=== PATIENT | female | born 1935 | race Caucasian/White ===

== ENCOUNTER 2020-02-23 20:53 | Emergency (ER) | payer MEDICARE, OTHER ==
[~2020-02-23] VITALS: Ht 167.6 cm; Wt 56.2 kg
[~2020-02-23 20:53] MED LIST: ACET325 PO; ALEN70 PO; Armour Thyroid90 MG PO; CEFD300 PO; CLIN150 PO; CODACE60 PO; Cartia Xt120 MG PO; Colace250 MG PO; DILT120ERA PO; DIPH50 PO; FAMO40 PO; FENTANYL1 EAC1 TOP; GABA300 PO; HYDACE5325 PO; Hydrocodone-Ap1 EA20 PO; LIDO700A20 TOP; LINZESS145 MCG PO; METCAR500 PO; METO50ER PO; METPRE4DP PO; OXYC5; OXYC5 PO; PRED5 PO; PROBIOTIC; RXSULTRIDS PO; Robaxin500 MG PO; Roxicodone5 MG PO; THYR60 PO; TRAM50 PO; Zithromax250 MG PO; [UNRECOGNIZED DRUG - OTHER]
[2020-02-23] MEDS ORDERED: OXYC10TA19 PO (22:58)
[2020-02-23] MEDS ORDERED: MELO7.5 PO (22:59)
[2020-02-23] MEDS ORDERED: ASCORBIC ACID500 MG PO (23:00)
[2020-02-23] MEDS ORDERED: PARO20 PO (23:00)
[2020-02-23] MEDS ORDERED: CENTRUM SILVER1 EAC2 PO (23:00)
[2020-02-23] MEDS ORDERED: CALCIUM 600 +1 EA11 (23:01)
[2020-02-24] MEDS ORDERED: LIDO700A20 TOP (00:14)
== END 2020-02-24 00:36 | disposition home or self-care (01) ==
LOC: ER 20:53
DX: S09.90XA Unspecified injury of head, initial encounter (principal); S32.039A Unspecified fracture of third lumbar vertebra, initial encounter for closed fracture; M81.0 Age-related osteoporosis without current pathological fracture; Z88.2 Allergy status to sulfonamides; Z88.0 Allergy status to penicillin; Z91.011 Allergy to milk products; Z88.5 Allergy status to narcotic agent; Z91.040 Latex allergy status; Z88.8 Allergy status to other drugs, medicaments and biological substances; Z79.899 Other long term (current) drug therapy; I48.0 Paroxysmal atrial fibrillation; E03.9 Hypothyroidism, unspecified; W11.XXXA Fall on and from ladder, initial encounter
CPT/HCPCS: 70450; 72100; 72125; 72128; 72131; 72192; 99284-25

== ENCOUNTER 2020-03-25 19:00 | Inpatient (IN) | payer MEDICARE, OTHER ==
[~2020-03-25] VITALS: Ht 167.6 cm; Wt 61.1 kg
[~2020-03-25 19:00] MED LIST changes: +ASCORBIC ACID500 MG PO; +CALCIUM 600 +1 EA11; +CENTRUM SILVER1 EAC2 PO; +COLACE100 MG PO; +MELO7.5 PO; +Magnesium Citr296 ML PO; +OXYC10TA19 PO; +PARO20 PO
[2020-03-25] MEDS ORDERED: MELO7.5 PO (23:21)
[2020-03-25] MEDS ORDERED: CALCIUM 600 +1 EA11 PO (23:22)
[2020-03-25] MEDS ORDERED: Cardizem CD 12120 MG PO (23:23)
[2020-03-26] MEDS ORDERED: Cipro250 MG PO (01:11)
[2020-03-26] MEDS ORDERED: DICLOFENAC SOD100 G1 TOP (01:13)
[2020-03-26] MEDS ORDERED: DOCU100 PO (01:14)
[2020-03-26] MEDS ORDERED: ALEN70 PO (01:16)
[2020-03-26] MEDS ORDERED: LINZESS290 MCG PO (01:18)
[2020-03-26 02:02] LABS: BASOPHILS ABSOLUTE AUTO 0.04 K/mm3 (0.00-0.23); BASOPHILS PERCENT AUTO 1 % (0-2); EOSINOPHILS ABSOLUTE AUTO 0.25 K/mm3 (0.00-0.68); EOSINOPHILS PERCENT AUTO 3 % (0-6); Hematocrit 40.5 % (33.0-51.0); Hemoglobin 13.6 g/dL (11.5-16.0); IMMATURE GRAN ABSOLUTE AUTO 0.04 K/mm3 (0.00-0.10); IMMATURE GRAN PERCENT AUTO 1 % (0-1); LYMPHOCYTES ABSOLUTE AUTO 2.49 K/mm3 (0.84-5.20); LYMPHOCYTES PERCENT AUTO 29 % (21-46); MONOCYTES ABSOLUTE AUTO 0.95 K/mm3 (0.16-1.47); MONOCYTES PERCENT AUTO 11 % (4-13); Mean Corpuscular HGB 32.3 pg (26.0-34.0); Mean Corpuscular HGB Conc 33.6 g/dL (31.5-36.5); Mean Corpuscular Volume 96 fL (80-100); Mean Platelet Volume 10.5 fL (9.1-12.4); NEUTROPHILS PERCENT AUTO 55 % (41-73); Platelet Count 232 K/mm3 (150-400); RDW Standard Deviation 46.1 fL (35.1-46.3); Red Blood Cell Count 4.21 M/mm3 (3.80-5.20); White Blood Cell Count 8.47 K/mm3 (4.00-11.30)
[2020-03-26 02:05] LABS: Anion Gap 6 mmol/L (6-16); Blood Urea Nitrogen 18 mg/dL (8-24); Bun/Creatinine Ratio 24.8 (12.0-20.0); CO2, Blood 27 mmol/L (21-32); Calcium, Blood 9.2 mg/dL (8.5-10.1); Chloride, Blood 104 mmol/L (98-108); Creatinine, Blood 0.73 mg/dL (0.40-1.00); Glomerular Filtration Rate >60 (60-); Glucose, Blood 90 mg/dL (70-99); Sodium, Blood 137 mmol/L (136-145)
[2020-03-26] MEDS ORDERED: ACET500 PO (02:11)
[2020-03-26] MEDS ORDERED: ARTIFICIAL TEAR15 M2 BOTHEYES (02:11)
[2020-03-26] MEDS ORDERED: OTC SLEEP AID PO (02:13)
--- NOTE | 2020-03-26 03:05 | NUR ---
PT ARRIVED TO ROOM FROM ER IN STABLE CONDITION, REPORTS SOB WITH PAIN, ON RA AT 97%. PAIN IN BACK AND L SIDE, STARTED PT'S FENTANYL MANAGER RAIL AND APPLIED LIDOCAINE PATCHES. WILL EVAL FOR EFFECT. NO OTHER APPARENT SIGNS OF DISTRESS. CALL LIGHT IS IN REACH.
--- NOTE | 2020-03-26 04:24 | NUR ---
PT IS AAO X 4, REPORTS SOB WITH PAIN, IS ON RA AT 97%. REPORTS PAIN IN BACK AND L SIDE, PT HAS A FENTANYL LANDMEN AND LIDOCAINE PATCHES. CONT BIOX.
--- NOTE | 2020-03-26 04:24 | NUR ---
PT LYING IN BED, EYES CLOSED, APPEARS TO BE RESTING. BREATHING IS EVEN, UNLABORED. NO APPARENT SIGNS OF DISTRESS. CALL LIGHT IS IN REACH.
--- NOTE | 2020-03-26 06:11 | NUR ---
PT REQUESTED AND RECIEVED PAIN MEDICATION. CHECKED TO SEE IF PT IS PUSHING HER ENGINEERING PROJECT MANAGER BUTTON, SHE SAID SHE IS BUT WHEN BEFORE I GAVE HER THE PAIN MED FOR BREAKTHROUGH PAIN, I PUSHED THE BUTTON FOR HER AND IT WAS TIME AGAIN. I WILL LET WHOEVER TAKES CARE OF HER KNOW SHE NEEDS TO ALSO BE REMINDED TO PUSH THE ENGINEERING PROJECT MANAGER BUTTON. ALSO GOT PT A HEATING PAD. WILL EVAL FOR EFFECT. NO OTHER APPARENT SIGNS OF DISTRESS. CALL LIGHT IS IN REACH. NO OTHER CHANGES THIS SHIFT.
--- NOTE | 2020-03-26 17:35 | NUR ---
PT REMAINS ON STATISTICIAN PUMP WITH OCCASIONAL PRN MEDS GIVEN FOR BREAK THROUGH PAIN . SHE IS ABLE TO AMBULATE TO THE RESTROOM WITH SBA. PT IS A/0 X4 AND IS COOPERATIVE AND PLEASANT WITH STAFF. NO ACUTE CHANGES. CALL LIGHT WITHIN REACH.
--- NOTE | 2020-03-26 18:52 | NUR ---
Spiritual care note: Supportive visit with Fay. She is well-known to me from the community. I was also present when her spouse a few months ago. She responded well to prayer and auto travel counselor. She tells me that she knows she shouldn't be living by herself any more, but she cannot afford assisted living. Her income was cut in half when spouse . She would benefit from a caregiver and a careful assesment of her finances. She may, in fact, be able to financially manage assisted living. She admits she has never looked into this option. I will continue to see Fay as schedule permits.
--- NOTE | 2020-03-26 18:58 | NUR ---
Met with pt this morning and a few after checks. Pt worked with pt this morning. Review of assesment of symptoms and medications with physician. Pt states she has been having more headaches and ringing in her ears. She has mild diszziness and more difficulty with managing ambulation and complains of weakness. Her mouth is sore and having more difficulty swallowing and some emesis right after eating. She has very poor appetitie. She states she is not sleeping much. Pt grieving loss of her . She lives alone and does her own shopping. She relayed she often shops at [employer]. She states she is dairy intolerant and has not tied soy products. She has a step in shower and it is difficlut but she does it. She spends most of her time reading. She has recieved calls from her children who are diving out to help her. Encouraged her to accept rehab. We reiveid getting more help and assited living to help with safety. Did not ask if she is trying to drive. We reviewed strategies for food tolerance and pain management and diversion. Requested her home pain cream. pt castro deluca will follow up for pain managment. pt high risk fall and failure to thive due to isolation and grief. will have chaplian see pt.
--- NOTE | 2020-03-27 04:52 | NUR ---
SHIFT SUMMARY: SBP ELEVATED TO 217 TONIGHT, PT PAINFUL AT THE TIME. AFTER PAIN MEDS AND REST, SBP 152 THIS. TUB RIDER PUMP ORDERED. ENCOURAGED PT TO UTILIZE PUMP. PT CONT TO BE VERY PAINFUL. CRYING INTERMITTENTLY. ADDITIONAL PRN FENTANYL GIVEN W/SOME IMPROVEMENT, OXYCODONE ADMINISTEREDX1, PT FELT NAUSEAUS AFTER, REQUESTED SOY MILK RATHER THAN ANTIEMETIC AT THIS TIME. ASSISTED PT W/ REPOSITIONING AND PLACEMENT OF K-PAD. SLEPT INTERMITTENTLY. PAIN CONT IN BACK AND L HIP. UP TO BSC W/ASSIST. CONT BIOX IN PLACE. WILL CONT TO MONITOR.
--- NOTE | 2020-03-27 17:01 | NUR ---
Spiritual care note: Several attempts to see Fay today. She was sleeping peacefully at each attempt. [facility] will remain available.
--- NOTE | 2020-03-27 18:19 | NUR ---
SHIFT SUMMARY PATIENT MEDICATED WITH PRN'S AND INVESTOR RELATIONS ANALYST FOR PAIN THIS SHIFT. MEDICATED X1 FOR NAUSEA WITH LITTLE EFFECT. PATIENT UP SBA W/FWW TO BR. PALLIATIVE CARE CONSULT. PATIENT UNABLE TO PARTICIPATE IN PT TODAY DUE TO NAUSEA. CALL TO DR. EASON TO DISCUSS NAUSEA MANAGEMENT AND POSSIBLE FENTANYL PATCH TO REPLACE INVESTOR RELATIONS ANALYST. NEW ORDERS TO DC BACLOFEN GIVEN.
--- NOTE | 2020-03-28 05:00 | NUR ---
SHIFT SUMMARY: VSS. AFEB. AAOX4. ABLE TO COMMUNICATE NEEDS. MORE PAINFUL AT START OF SHIFT, ADDITIONAL FENTANYL 50MCG GIVEN X 1. PRN OXYCODONE GIVEN X1. PT ENCOURAGED TO USE MAKEUP ARTISTRY INSTRUCTOR BEFORE THE POINT THAT SHE IS TEARFUL. REPORTING BETTER PAIN RELIEF THIS AM. DENIES N/V ALL NIGHT. PT FEELING URGE TO VOID BUT UNSUCCESSFUL SEVERAL TIMES TONIGHT. WILL BLADDER SCAN IF NEEDED. AWAITING URINE FOR UA ORDER. WILL CONT TO MONITOR.
[2020-03-28 05:23] LABS: BASOPHILS ABSOLUTE AUTO 0.02 K/mm3 (0.00-0.23); BASOPHILS PERCENT AUTO 0 % (0-2); EOSINOPHILS ABSOLUTE AUTO 0.25 K/mm3 (0.00-0.68); EOSINOPHILS PERCENT AUTO 5 % (0-6); Hematocrit 38.5 % (33.0-51.0); Hemoglobin 12.4 g/dL (11.5-16.0); IMMATURE GRAN ABSOLUTE AUTO 0.02 K/mm3 (0.00-0.10); IMMATURE GRAN PERCENT AUTO 0 % (0-1); LYMPHOCYTES PERCENT AUTO 24 % (21-46); MONOCYTES PERCENT AUTO 13 % (4-13); Mean Corpuscular HGB 31.2 pg (26.0-34.0); Mean Corpuscular HGB Conc 32.2 g/dL (31.5-36.5); Mean Corpuscular Volume 97 fL (80-100); Mean Platelet Volume 10.3 fL (9.1-12.4); NEUTROPHILS ABSOLUTE AUTO 3.07 K/mm3 (1.96-9.15); NEUTROPHILS PERCENT AUTO 57 % (41-73); Platelet Count 228 K/mm3 (150-400); RDW Coefficient Variation 12.6 % (11.7-14.2); RDW Standard Deviation 45.4 fL (35.1-46.3); Red Blood Cell Count 3.98 M/mm3 (3.80-5.20); White Blood Cell Count 5.36 K/mm3 (4.00-11.30)
[2020-03-28 05:37] LABS: Source, Urine Clean Catch
[2020-03-28 05:52] LABS: Magnesium, Blood 2.2 mg/dL (1.6-2.4)
[2020-03-28 05:53] LABS: Alanine Aminotransfer (ALT/SGP 19 U/L (12-78); Albumin, Blood 3.1 g/dL (3.4-5.0); Albumin/Globulin Ratio 0.8 (0.8-1.8); Alk Phos 99 U/L (50-136); Anion Gap 6 mmol/L (6-16); Aspartate Aminotrans (AST/SGOT 18 U/L (12-37); Bilirubin, Total 0.8 mg/dL (0.1-1.0); Blood Urea Nitrogen 18 mg/dL (8-24); Bun/Creatinine Ratio 23.8 (12.0-20.0); CO2, Blood 27 mmol/L (21-32); Calcium, Blood 9.1 mg/dL (8.5-10.1); Chloride, Blood 104 mmol/L (98-108); Creatinine, Blood 0.76 mg/dL (0.40-1.00); Globulin, Blood 3.7 g/dL (2.2-4.0); Glomerular Filtration Rate >60 (60-); Glucose, Blood 98 mg/dL (70-99); Potassium, Blood 4.1 mmol/L (3.5-5.5); Sodium, Blood 137 mmol/L (136-145); Total Protein, Blood 6.8 g/dL (6.4-8.2)
[2020-03-28 05:55] LABS: Appearance, Urine Clear (Clear); Bilirubin, Urine Neg (Neg); Blood, Urine Neg (Neg); Color, Urine Yellow (P-Yellow); Glucose Qualitative, Urine Neg (Neg); Ketones, Urine Neg (Neg); Leukocyte Esterase, Urine Neg (Neg); Nitrite, Urine Neg (Neg); Protein, Urine Neg (Neg); Urobilinogen, Urine NORM (Normal)
--- NOTE | 2020-03-28 06:31 | NUR ---
BUSINESS ASSOCIATE PUMPED CLEARED AT 2300 AND AGAIN AT 0600. IN THIS TIME PT USED BUSINESS ASSOCIATE DOSE 6 TIMES.
--- NOTE | 2020-03-28 11:37 | NUR ---
Spiritual care visit conducted. Patient is sitting on a chair and alert. Patient tells me about her medical issues, the recent of her (last September) to Alzheimer's and the of her son-in-law yesterday to Alzheimer's as well. We talk about grief, family and her seth (patient is a Judaism and attends [employer]). As patient runs down the list of the many things she has been through and how God has always been by her side, she encourages herself. I normalize patient's experience, and provide grief support, pastoral student success counselor and prayer. Patient responds well and shows signs of improved hope. I will continue to remain available to patient and family
--- NOTE | 2020-03-28 13:08 | NUR ---
pt up to bathroom asisted to bed. no nausea at this time but bouts of nausea off and on. Review of current meds and her food sensitivites to see if we can find cause. Physicn in to review pt meds. Pt children are enroute here. will continur to monitor.
--- NOTE | 2020-03-28 17:55 | NUR ---
SHIFT SUMMARY PATIENT MEDICATED SCHEDULED FOR PAIN AND WITH SECONDARY SCHOOL PRINCIPAL. PATIENT MEDICATED SCHEDULED FOR NAUSEA. PATIENT REPORTS NO NAUSEA TODAY. PATIENT REPORTS WHEEZING AND SHORTNESS OF BREATH AFTER FIRST DOSE OF CALCITONIN SPRAY TODAY. CALL TO DR. CASTAÑEDA, NEW ORDERS FOR ONE TIME ALBUTEROL NEB GIVEN. AFTER NEB PATIENT REPORTED NORMAL BREATHING AND NO FURTHER ISSUES THIS SHIFT. PATIENT WORKED WITH PT/OT. PATIENT WALKED IN HALLWAY WITH FWW. CALL LIGHT IN REACH.
--- NOTE | 2020-03-29 05:22 | NUR ---
KILN CLEANER SUMMARY PT WAS AXO X4 PLEASANT AND COOPERATIVE W CARE. PT SLEPT SEVERAL HOURS AT A TIME GETTING UPN 3 TIMES TO USE RESTROOM PRODUCING VERY LITTLE URINE AND NO STOOL. PT IS ABLE TO AMBULATE W FWW TO RESTROOM BUT USES CALL LIGHT APPROPRIATLEY FOR ASSISTANCE.
--- NOTE | 2020-03-29 18:12 | NUR ---
SHIFT SUMMARY PATIENT CONTINUES TO EXPRESS PAIN LEVELS 7-10/10 AT ALL TIMES. SEE PAIN ASSESSMENTS/REASSESSMENTS. PAIN SHARP AND CONTINUOUS TO LEFT SIDE AND BACK. TOP LIFT AND AUTOMATIC WINDOW REPAIRER REMAINS IN PLACE AND OXYCODONE GIVEN PER ORDERS. THIS RN PROVIDED KPAD, OFFERED ICE (DECLINED), AND COACHED ON DEEP BREATHING EXERCISES. FREQUENT DISTRACTION UTILIZED. UP TO CHAIR AND AMBULATING OFTEN, ACTIVITY HELPS PAIN, PER PT.
[2020-03-30 00:43] LABS: BASOPHILS ABSOLUTE AUTO 0.03 K/mm3 (0.00-0.23); BASOPHILS PERCENT AUTO 1 % (0-2); EOSINOPHILS ABSOLUTE AUTO 0.21 K/mm3 (0.00-0.68); EOSINOPHILS PERCENT AUTO 4 % (0-6); Hematocrit 36.8 % (33.0-51.0); Hemoglobin 12.2 g/dL (11.5-16.0); IMMATURE GRAN ABSOLUTE AUTO 0.02 K/mm3 (0.00-0.10); IMMATURE GRAN PERCENT AUTO 0 % (0-1); LYMPHOCYTES PERCENT AUTO 27 % (21-46); MONOCYTES ABSOLUTE AUTO 0.67 K/mm3 (0.16-1.47); MONOCYTES PERCENT AUTO 11 % (4-13); Mean Corpuscular HGB 31.4 pg (26.0-34.0); Mean Corpuscular HGB Conc 33.2 g/dL (31.5-36.5); Mean Corpuscular Volume 95 fL (80-100); Mean Platelet Volume 9.8 fL (9.1-12.4); NEUTROPHILS ABSOLUTE AUTO 3.46 K/mm3 (1.96-9.15); NEUTROPHILS PERCENT AUTO 58 % (41-73); Platelet Count 219 K/mm3 (150-400); RDW Coefficient Variation 12.5 % (11.7-14.2); RDW Standard Deviation 43.6 fL (35.1-46.3); Red Blood Cell Count 3.88 M/mm3 (3.80-5.20); White Blood Cell Count 5.99 K/mm3 (4.00-11.30)
[2020-03-30 00:58] LABS: Anion Gap 4 mmol/L (6-16); Blood Urea Nitrogen 21 mg/dL (8-24); Bun/Creatinine Ratio 23.7 (12.0-20.0); CO2, Blood 30 mmol/L (21-32); Calcium, Blood 8.7 mg/dL (8.5-10.1); Chloride, Blood 99 mmol/L (98-108); Creatinine, Blood 0.89 mg/dL (0.40-1.00); Glomerular Filtration Rate >60 (60-); Glucose, Blood 107 mg/dL (70-99); Potassium, Blood 4.5 mmol/L (3.5-5.5); Sodium, Blood 133 mmol/L (136-145)
--- NOTE | 2020-03-30 04:09 | NUR ---
SHIFT SUMMARY ADMITTED FOR INTRACTABLE BACK PAIN (COMPRESSION FX OF SPINE & LFT HIP FX). DNR CODE. PT HAS A SALES REPRESENTATIVE PUMP INFUSING FENTANYL. DOSEAGE TITRATED DOWN ON PREVIOUS SHIFT. PT STATES SHE IS CONSTIPATED, BOWEL CARE GIVEN. SHE DOES DESATURATE WHEN SHE AMBULATES. SHE EXPERIENCES FREQUENCY OF URINATION, BUT WITH SMALL AMOUNTS OF OUTPUT EACH TIME. NEW IV PLACED THIS SHIFT THE PREVIOUS IV BECAME PAINFUL. PLAN IS TO MANAGE PAIN (DECREASE RELIANCE ON NARCOTICS) & DC W/HH OR A PART-TIME CAREGIVER, ALSO HOME PHYSICAL THERAPY MAY HELP. SHE DOES RUN BRADYCARDIC AT TIMES.
--- NOTE | 2020-03-30 13:59 | NUR ---
DAUGHTER PATRIC MCNULTY [phone], IS DRIVING FROM [place] TO BE WITH PT. REQUESTED TO BE ADDED TO PT CONTACT LIST, BUT PT DECLINED WHEN ASKED DUE TO PATRIC'S LIVING OUT OF STATE. OKAY, PER PT, TO GIVE PATRIC UPDATES.
[2020-03-30 18:23] LABS: Source, Urine Clean Catch
[2020-03-30 18:29] LABS: Bilirubin, Urine Neg (Neg); Blood, Urine Neg (Neg); Glucose Qualitative, Urine Neg (Neg); Ketones, Urine Neg (Neg); Leukocyte Esterase, Urine Neg (Neg); Nitrite, Urine Neg (Neg); Protein, Urine Neg (Neg); Urobilinogen, Urine NORM (Normal)
[2020-03-30 18:34] LABS: Appearance, Urine Clear (Clear); Color, Urine Yellow (P-Yellow)
--- NOTE | 2020-03-31 01:56 | NUR ---
PT APPEARS TO BE RESTING COMFORTABLY IN BED WITH CALL LIGHT AND PROFESSOR OF BUSINESS BUTTON IN HAND. REPORT GIVEN TO LISETTE JUNE. SHAYLEE IS ASSUMING CARE OF MRS. HANNON AT THIS TIME.
--- NOTE | 2020-03-31 08:02 | NUR ---
PROVIDER RELATIONS CONSULTANT SUMMARY Assumed care at 0240. Patient sleeping. CABINET ABRASIVE SANDBLASTER Fentanyl running at ordered dose. Patient pushed for CABINET ABRASIVE SANDBLASTER dose 10 times overnight since 1800. Woke this morning A&OX4, pleasant alert and "mostly comfortable".. very appreciative of care
--- NOTE | 2020-03-31 08:24 | NUR ---
in fowlers position, vitals taken, nothing needed at moment, call light in reach.
--- NOTE | 2020-03-31 14:30 | NUR ---
Pal Care visit. Pt sitting up in chair, attempting some am care. I brought her a warm washcloth for cleaning face and towel. Pt winces in sharp pain when pointing to where she is hurting on left lower torso. She has a STATISTICAL MACHINE MECHANIC with prn dosing for pain and states for the most part it is managing her pain satisfactorily. Time spent as a supportive visit. She is hopeful for d/c soon.
--- NOTE | 2020-03-31 15:04 | NUR ---
Spiritual care visit conducted. Patient is lying in bed and alert. Patient talks about how exhausted she is by the pain and that she is surprised that the doctors would send her home while the pain is still unmanaged. We talk about patient's evangelical and the people we both know, patient shares about how she believes that God put this pain on her to teach her something. I listen empathically, explore catholic beliefs, and provide pastoral certified credit counselor and prayer. Patient responds favorably and invites more conversation on this topic. I will continue to remain available to patient and family.
--- NOTE | 2020-03-31 16:39 | NUR ---
Supportive visit with Fay this morning. She winced and complained of pain when moving. She appears rather frail and tells me she is quite tired. She allowed prayer. We spoke at length about the loss of her six months ago, and Fay responded well to gentle primary substance abuse counselor. She admits to feeling very lonely in her home without her . Adopted dtr, Karo, has been visiting as much as she can, but her spouse just last week. Fay will benefit from continued primary substance abuse counselor and prayer. I will see this pt as shedule permits.
--- NOTE | 2020-03-31 17:53 | NUR ---
Shift Summary A/Ox4, pleasant and cooperative with care. TECHNICAL PROJECT COORDINATOR with Fentanyl continues with plan to wean tomorrow. 1P c gait and FWW to bathroom, calls for needs appropriately. Pt complains that she still continues to have pain despite TECHNICAL PROJECT COORDINATOR pump. This RN has entered room to patient appearing to be in pain, holding breath, c/o not being able to take deep breaths, and just moaning. Medicated for 02/17 pain c oral meds per EMAR with minimal relief down to 12/18. Worked with PT/OT today. Patient is worried about going home without adequate pain control. Will continue to monitor.
--- NOTE | 2020-04-01 04:05 | NUR ---
SUMMARY: A/OX4, PLEASANT AND COOPERATIVE W/CARE. SHE CONT'S TO REPORT BACK AND L.HIP PAIN W/FENTANYL FURNITURE SERVICER PUMP INFUSING AND PLANS FOR STAFF TO ATTEMPT WEAN TODAY. PT HAS REPORTED IMPROVED PAIN CONTROL W/Q4H OXY PRN WA. SHE IS 1P ASSIST W/FWW TO TOILET W/SMALL AMTS OF UO AT A TIME. SHE DENIES ALL OTHER COMPLAINTS AND PLAN IS FOR PT TO GO HOME W/HOME HEALTH ONCE ADEQUATE PAIN CONTROL IS ACHIEVED. NO ACUTE CHANGES, VSS/AFEBRILE. WCTM/REPORT TO DAY RN.
--- NOTE | 2020-04-01 09:20 | NUR ---
PAL CARE VISIT - Pt smiling upon entering. She is up to chair with OB table in front of her again this am. She appears and verbalizes feeling much more comfortable today. Pt does not identify any needs at this time. She is looking forward to being able to leave the hospital. Pal Care will not visit further unless needs identified and request received to return.
--- NOTE | 2020-04-01 17:45 | NUR ---
Shift Summary PHOTOVOLTAIC FABRICATION TECHNICIAN pump has been discontinued, verified with Jacque Guzman RN. Worked with PT/OT today, tolerated well. Up to bathroom x 1 assist c FWW and gait. Able to make needs known. Briefly after PHOTOVOLTAIC FABRICATION TECHNICIAN pump was d/c, patient was extremely tearful asking for pain medications d/t 10/10 pain. Medicated per EMAR and notified Dr. Davey RE unmanaged pain. Fentanyl patch was ordered and seems to be helping so far. Current pain scale has been at an all time low of 5/10 (per patient, tolerable level is 6/10). Lung sounds noted to have crackles in bilateral bases. Continuous pulse ox remains on. No respiratory distress noted. Will continue to monitor.
--- NOTE | 2020-04-01 18:14 | NUR ---
Routine spiritual care note: Fay is worried about retuning home as she still reports "too much pain in her ribs and back. [place] d[place], but Fay does not want dtr involved in care. Provided encouragement and education counselor. We prayed together at conclusion of visit. I will remain available.
--- NOTE | 2020-04-02 04:27 | NUR ---
SUMMARY: PT A/OX4, PLEASANT AND COOPERATIVE W/CARE AND CALLS APPROPRIATELY FOR ASSIST. SHE CONT'S TO HAVE 7-8/10 L.SIDE AND BACK PAIN. FENTANYL PATCH IN PLACE AND SEEMS TO BE HELPING AND OXYCODONE IS RX'D Q4H WA WHICH APPEARS TO MANAGE PAIN BETTER DURING THE DAY. SHE DID AWAKE IN THE NIGHT W/BREAKTHROUGH PAIN W/TYLENOL PROVIDED PRN FOR SOME IMPROVEMENT. SHE MAY BENEFIT FROM SOMETHING STRONGER PRN T/O NOCTE THOUGH, WILL DISCUSS W/DAY RN. SHE'S UP TO BS W/SBA AND SEEMS TO TOLERATE MOBILITY DESPITE PAIN. PT/OT WORKING W/HER. SHE'S DENIED ALL OTHER COMPLAINTS/CONCERNS. SHE'S A POSSIBLE D/C HOME W/HOME HEALTH TODAY. LS HAVE CRACKLES IN BASES W/SPO2 WNL ON CONT BIOX. NO S/S RESP DISTRESS AND NO ACUTE CHANGES. VSS/AFEBRILE. WCTM AND REPORT TO DAY RN.
[2020-04-02] MEDS ORDERED: DULO60 PO (15:10)
[2020-04-02] MEDS ORDERED: FENTANYL1 EA10 TOP (15:12)
[2020-04-02] MEDS ORDERED: GABA300 PO (15:13)
[2020-04-02] MEDS ORDERED: LIDO700A20 TOP (15:14)
[2020-04-02] MEDS ORDERED: MELA3 PO (15:15)
[2020-04-02] MEDS ORDERED: NARCAN4 M1 (15:16)
[2020-04-02] MEDS ORDERED: ONDA4ODT MM (15:17)
[2020-04-02] MEDS ORDERED: OXYC10TA19 PO (15:18)
[2020-04-02] MEDS ORDERED: MIRALAX17 GM PO (15:19)
[2020-04-02] MEDS ORDERED: SENN187 PO (15:20)
--- NOTE | 2020-04-02 16:00 | NUR ---
PATIENT DISCHARGED TO HOME WITH HER FRIEND DANNA. MEDICATIONS FAXED TO [facility]. HARD COPY RX'S GIVEN TO DANNA FOR FENTANYL PATCHES AND OXYCODONE DANNA WILL BE PICKING UP PRESCRIPTIONS FOR PATIENT; PATIENT AWARE. IV SALINE LOCK REMOVED WITHOUT INCIDENT.
--- NOTE | 2020-04-02 16:52 | NUR ---
Spiritual care note: Fay was being visited by her two dtrs. She expressed concern about going home as she is still quite weak and lives alone. Both dtrs expressed worry that Fay's pain was still there. Encouraged speaking up about concerns. Facilitated prayer for God's protection and healing. I will remain available.
== END 2020-04-02 17:25 | disposition home health service (06) | DRG 543 ==
LOC: ER 19:00 → MEDS 19:01 → SURS 19:01 → MEDS 03-26 01:48
PROVIDERS: Family Medicine; Internal Medicine; Nurse Practitioner Acute Care; ADMIT Internal Medicine
DX: M80.88XA Other osteoporosis with current pathological fracture, vertebra(e), initial encounter for fracture (principal); M31.8 Other specified necrotizing vasculopathies; M84.48XA Pathological fracture, other site, initial encounter for fracture; S32.9XXA Fracture of unspecified parts of lumbosacral spine and pelvis, initial encounter for closed fracture; E03.9 Hypothyroidism, unspecified; I48.0 Paroxysmal atrial fibrillation; G89.29 Other chronic pain; M85.80 Other specified disorders of bone density and structure, unspecified site; M47.9 Spondylosis, unspecified; K59.00 Constipation, unspecified; F32.9 Major depressive disorder, single episode, unspecified; M40.209 Unspecified kyphosis, site unspecified; Z88.5 Allergy status to narcotic agent; Z88.0 Allergy status to penicillin; Z88.2 Allergy status to sulfonamides; Z88.8 Allergy status to other drugs, medicaments and biological substances; Z91.040 Latex allergy status; Z91.011 Allergy to milk products; Z79.1 Long term (current) use of non-steroidal anti-inflammatories (NSAID)
CPT/HCPCS: 36415; 74019; 80048; 80053; 81003; 82306; 83735; 85025; 94640; 94762; 96372; 96374; 96376; 97110; 97112; 97116; 97162; 97165; 97530; 97535; 99284-25; A9270-GY; C9113; G0378; J1650; J2405; J3010; J7030; J7040

== ENCOUNTER 2020-06-19 16:18 | Emergency (ER) | payer MEDICARE, OTHER ==
[~2020-06-19] VITALS: Ht 162.6 cm; Wt 56.2 kg
[~2020-06-19 16:18] MED LIST changes: +ACET500 PO; +ARTIFICIAL TEAR15 M2 BOTHEYES; +CALCIUM 600 +1 EA11 PO; +Cardizem CD 12120 MG PO; +Cipro250 MG PO; +DICLOFENAC SOD100 G1 TOP; +DOCU100 PO; +DULO60 PO; +FENTANYL1 EA10 TOP; +LINZESS290 MCG PO; +MELA3 PO; +MIRALAX17 GM PO; +NARCAN4 M1; +ONDA4ODT MM; +OTC SLEEP AID PO; +SENN187 PO
== END 2020-06-19 19:43 | disposition home or self-care (01) ==
LOC: ER 16:18
DX: S00.81XA Abrasion of other part of head, initial encounter (principal); S10.91XA Abrasion of unspecified part of neck, initial encounter; E03.9 Hypothyroidism, unspecified; I48.0 Paroxysmal atrial fibrillation; Z79.899 Other long term (current) drug therapy; Z88.2 Allergy status to sulfonamides; Z88.0 Allergy status to penicillin; Z91.040 Latex allergy status; Z91.011 Allergy to milk products; Z88.8 Allergy status to other drugs, medicaments and biological substances; W22.8XXA Striking against or struck by other objects, initial encounter
CPT/HCPCS: 72125; 72220; 99284-25; A9270; L0160

== ENCOUNTER 2020-08-15 18:37 | Emergency (ER) | payer MEDICARE, OTHER ==
[~2020-08-15] VITALS: Ht 167.6 cm; Wt 55.8 kg
[2020-08-15 19:18] LABS: BASOPHILS ABSOLUTE AUTO 0.04 K/mm3 (0.00-0.23); BASOPHILS PERCENT AUTO 1 % (0-2); EOSINOPHILS ABSOLUTE AUTO 0.06 K/mm3 (0.00-0.68); EOSINOPHILS PERCENT AUTO 1 % (0-6); Hematocrit 39.4 % (33.0-51.0); Hemoglobin 12.9 g/dL (11.5-16.0); IMMATURE GRAN ABSOLUTE AUTO 0.01 K/mm3 (0.00-0.10); IMMATURE GRAN PERCENT AUTO 0 % (0-1); LYMPHOCYTES PERCENT AUTO 21 % (21-46); MONOCYTES ABSOLUTE AUTO 0.46 K/mm3 (0.16-1.47); MONOCYTES PERCENT AUTO 9 % (4-13); Mean Corpuscular HGB 30.8 pg (26.0-34.0); Mean Corpuscular HGB Conc 32.7 g/dL (31.5-36.5); Mean Corpuscular Volume 94 fL (80-100); Mean Platelet Volume 10.4 fL (9.1-12.4); NEUTROPHILS ABSOLUTE AUTO 3.46 K/mm3 (1.96-9.15); NEUTROPHILS PERCENT AUTO 67 % (41-73); Platelet Count 194 K/mm3 (150-400); RDW Coefficient Variation 12.9 % (11.7-14.2); RDW Standard Deviation 44.5 fL (35.1-46.3); Red Blood Cell Count 4.19 M/mm3 (3.80-5.20); White Blood Cell Count 5.13 K/mm3 (4.00-11.30)
[2020-08-15 19:42] LABS: Alanine Aminotransfer (ALT/SGP 29 U/L (12-78); Albumin, Blood 3.5 g/dL (3.4-5.0); Albumin/Globulin Ratio 0.9 (0.8-1.8); Alk Phos 94 U/L (50-136); Anion Gap 6 mmol/L (6-16); Aspartate Aminotrans (AST/SGOT 21 U/L (12-37); Bilirubin, Total 0.4 mg/dL (0.1-1.0); Blood Urea Nitrogen 13 mg/dL (8-24); Bun/Creatinine Ratio 21.4 (12.0-20.0); CO2, Blood 26 mmol/L (21-32); Chloride, Blood 107 mmol/L (98-108); Creatinine, Blood 0.61 mg/dL (0.40-1.00); Globulin, Blood 3.7 g/dL (2.2-4.0); Glomerular Filtration Rate >60 (60-); Glucose, Blood 150 mg/dL (70-99); Potassium, Blood 3.6 mmol/L (3.5-5.5); Sodium, Blood 139 mmol/L (136-145); Total Protein, Blood 7.2 g/dL (6.4-8.2)
[2020-08-15] MEDS ORDERED: ONDA4ODT MM (22:42)
[2020-08-15] MEDS ORDERED: Pepcid40 MG PO (22:42)
[2020-10-10] MEDS ORDERED: DILT120ERA PO (15:22)
[2020-10-10] MEDS ORDERED: FENTANYL1 EA10 TOP (15:23)
[2020-10-10] MEDS ORDERED: PARO20 PO (15:23)
[2020-10-10] MEDS ORDERED: DHEA PO (15:24)
[2020-10-10] MEDS ORDERED: METF500C PO (15:28)
== END 2020-08-15 23:00 | disposition home or self-care (01) ==
LOC: ER 18:37
PROVIDERS: Emergency Medicine
DX: K29.70 Gastritis, unspecified, without bleeding (principal); E03.9 Hypothyroidism, unspecified; I48.0 Paroxysmal atrial fibrillation; Z88.2 Allergy status to sulfonamides; Z91.011 Allergy to milk products; Z88.0 Allergy status to penicillin; Z88.5 Allergy status to narcotic agent; Z91.040 Latex allergy status
CPT/HCPCS: 36415; 74177; 80053; 83690; 85025; 93005; 93010; 96361; 96374-59; 96375; 99285-25; A9270; J2270; J2405; J7120; Q9967

== ENCOUNTER → 2021-03-12 | Outpatient (CLI) | payer MEDICARE, OTHER ==
[~2021-03-12] MED LIST changes: +DHEA PO; +METF500C PO; +Pepcid40 MG PO
[2021-03-12 14:59] LABS: BASOPHILS ABSOLUTE AUTO 0.03 K/mm3 (0.00-0.23); BASOPHILS PERCENT AUTO 1 % (0-2); EOSINOPHILS ABSOLUTE AUTO 0.05 K/mm3 (0.00-0.68); EOSINOPHILS PERCENT AUTO 1 % (0-6); Hematocrit 40.1 % (33.0-51.0); Hemoglobin 13.7 g/dL (11.5-16.0); IMMATURE GRAN ABSOLUTE AUTO 0.04 K/mm3 (0.00-0.10); IMMATURE GRAN PERCENT AUTO 1 % (0-1); LYMPHOCYTES ABSOLUTE AUTO 0.92 K/mm3 (0.84-5.20); LYMPHOCYTES PERCENT AUTO 15 % (21-46); MONOCYTES ABSOLUTE AUTO 0.49 K/mm3 (0.16-1.47); MONOCYTES PERCENT AUTO 8 % (4-13); Mean Corpuscular HGB 31.9 pg (26.0-34.0); Mean Corpuscular HGB Conc 34.2 g/dL (31.5-36.5); Mean Corpuscular Volume 94 fL (80-100); Mean Platelet Volume 9.9 fL (9.1-12.4); NEUTROPHILS ABSOLUTE AUTO 4.76 K/mm3 (1.96-9.15); NEUTROPHILS PERCENT AUTO 76 % (41-73); Platelet Count 202 K/mm3 (150-400); RDW Coefficient Variation 13.4 % (11.7-14.2); RDW Standard Deviation 46.2 fL (35.1-46.3); Red Blood Cell Count 4.29 M/mm3 (3.80-5.20); White Blood Cell Count 6.29 K/mm3 (4.00-11.30)
[2021-03-12 15:19] LABS: Alanine Aminotransfer (ALT/SGP 26 U/L (12-78); Alk Phos 84 U/L (40-126); Anion Gap 8 mmol/L (6-16); Aspartate Aminotrans (AST/SGOT 21 U/L (12-37); Bilirubin, Total 0.4 mg/dL (0.1-1.0); Blood Urea Nitrogen 21 mg/dL (8-24); Bun/Creatinine Ratio 24.7 (12.0-20.0); CO2, Blood 28 mmol/L (21-32); Calcium, Blood 9.3 mg/dL (8.5-10.1); Chloride, Blood 101 mmol/L (98-108); Creatinine, Blood 0.85 mg/dL (0.40-1.00); Globulin, Blood 4.2 g/dL (2.2-4.0); Glomerular Filtration Rate >60 (60-); Glucose, Blood 109 mg/dL (70-99); Potassium, Blood 3.9 mmol/L (3.5-5.5); Sodium, Blood 137 mmol/L (136-145); Thyroid Stimulating Hormone 0.374 uIU/mL (0.360-4.800); Total Protein, Blood 8.2 g/dL (6.4-8.2); Troponin I <0.017 ng/mL (0.000-0.040)
== END | disposition home or self-care (01) ==
LOC: LAB 14:50 → LAB SHORT 14:50
PROVIDERS: Physician Assistant
DX: R07.9 Chest pain, unspecified (principal); R06.00 Dyspnea, unspecified; E03.9 Hypothyroidism, unspecified
CPT/HCPCS: 80053; 83880; 84443; 84484; 85025; 85379

== ENCOUNTER → 2021-04-20 | Outpatient (CLI) | payer MEDICARE, OTHER ==
[2021-04-20 12:15] LABS: Albumin, Blood 3.8 g/dL (3.4-5.0); Anion Gap 11 mmol/L (6-16); Blood Urea Nitrogen 17 mg/dL (8-24); Bun/Creatinine Ratio 20.7 (12.0-20.0); CO2, Blood 25 mmol/L (21-32); Calcium, Blood 8.8 mg/dL (8.5-10.1); Chloride, Blood 105 mmol/L (98-108); Creatinine, Blood 0.82 mg/dL (0.40-1.00); Glomerular Filtration Rate >60 (60-); Glucose, Blood 135 mg/dL (70-99); Sodium, Blood 141 mmol/L (136-145)
== END | disposition home or self-care (01) ==
LOC: LAB SHORT 11:56
PROVIDERS: Physician Assistant
DX: I48.91 Unspecified atrial fibrillation (principal)
CPT/HCPCS: 80069; 83880

== ENCOUNTER 2021-12-01 00:33 | Inpatient (IN) | payer MEDICARE, OTHER ==
[~2021-12-01] VITALS: Ht 167.6 cm; Wt 62.1 kg
[2021-12-01 01:11] LABS: BASOPHILS ABSOLUTE AUTO 0.01 K/mm3 (0.00-0.23); BASOPHILS PERCENT AUTO 0 % (0-2); EOSINOPHILS ABSOLUTE AUTO 0.07 K/mm3 (0.00-0.68); EOSINOPHILS PERCENT AUTO 1 % (0-6); Hematocrit 35.8 % (33.0-51.0); Hemoglobin 11.8 g/dL (11.5-16.0); IMMATURE GRAN ABSOLUTE AUTO 0.04 K/mm3 (0.00-0.10); IMMATURE GRAN PERCENT AUTO 1 % (0-1); LYMPHOCYTES ABSOLUTE AUTO 1.73 K/mm3 (0.84-5.20); LYMPHOCYTES PERCENT AUTO 22 % (21-46); MONOCYTES ABSOLUTE AUTO 0.58 K/mm3 (0.16-1.47); MONOCYTES PERCENT AUTO 7 % (4-13); Mean Corpuscular HGB 31.3 pg (26.0-34.0); Mean Corpuscular Volume 95 fL (80-100); NEUTROPHILS ABSOLUTE AUTO 5.46 K/mm3 (1.96-9.15); NEUTROPHILS PERCENT AUTO 69 % (41-73); Platelet Count 184 K/mm3 (150-400); RDW Standard Deviation 45.1 fL (35.1-46.3); Red Blood Cell Count 3.77 M/mm3 (3.80-5.20); White Blood Cell Count 7.89 K/mm3 (4.00-11.30)
[2021-12-01 01:22] LABS: Albumin, Blood 3.6 g/dL (3.4-5.0); Bilirubin, Total 0.2 mg/dL (0.1-1.0); Bun/Creatinine Ratio 34.8 (12.0-20.0); Calcium, Blood 8.7 mg/dL (8.5-10.1); Creatinine, Blood 0.86 mg/dL (0.40-1.00); Globulin, Blood 3.7 g/dL (2.2-4.0); Potassium, Blood 4.2 mmol/L (3.5-5.5); Total Protein, Blood 7.3 g/dL (6.4-8.2)
[2021-12-01 04:00] LABS: Free Thyroxine 0.96 ng/dL (0.70-1.60); Thyroid Stimulating Hormone 1.56 uIU/mL (0.360-4.800)
[2021-12-01 04:58] LABS: Source, Urine Foley catheter
[2021-12-01 05:01] LABS: Bilirubin, Urine Neg (Neg); Blood, Urine 1+ (Neg); Glucose Qualitative, Urine Neg (Neg); Ketones, Urine Neg (Neg); Leukocyte Esterase, Urine Neg (Neg); Nitrite, Urine Neg (Neg); Protein, Urine 1+ (Neg); Urobilinogen, Urine NORM (Normal)
[2021-12-01 05:26] LABS: Appearance, Urine Hazy (Clear); Color, Urine Yellow (P-Yellow)
[2021-12-01 05:27] LABS: Bacteria Many /hpf; Red Blood Cells, Urine 0-2 /hpf (0-2); Squamous Epithelial Cells Rare /hpf (Few)
--- NOTE | 2021-12-01 06:14 | NUR ---
AGREE WITH RN RELIEF CHARGE SHIFT ASSESSMENT DOCUMENTATION.
--- NOTE | 2021-12-01 06:17 | NUR ---
PT ARRIVED AT APPROXIMATELY 0515. PT REPORTS SEVERE R HIP PAIN/SPASMS. R HIP APPEARS EXTERINALLY ROTATED. REPOSTIONED WITH PILLOWS FOR COMFORT, ON LEFT SIDE. ORIENTED TO ROOM, VSS. CALL LIGHT IN REACH. JUAREZ DRAINING TO GRAVITY. PT NPO, ORTHO CONSULTED. WILL MONITOR.
[2021-12-01 12:27] LABS: Influenza A, PCR NEGATIVE (NEGATIVE); Influenza B, PCR NEGATIVE (NEGATIVE); Resp Syncytial Virus, PCR NEGATIVE (NEGATIVE); SARS-Cov-2 (COVID-19) PCR, MMC NEGATIVE (NEGATIVE)
--- NOTE | 2021-12-01 15:13 | NUR ---
Spiritual Care visit - Requested by attending nurse Pt. is in bed and displays evidence of visceral pain. Upon introductions, Pt. welcomes my visit. Pt. describes the nature of her pain and plans for surgery tomorrow (12/01). With a calming presence and theraputic listening was able to establish rapport with Pt. Prayed with Pt. Pt. verbalized gratitude for spiritual care visit. Attending nurse verbalized the change in pts. demanor and verbalized gratitude for the spiritual care visit.
--- NOTE | 2021-12-01 16:43 | NUR ---
SHIFT SUMMARY: 1 DAY S/P GLF RESULTING IN INNER TRHOCHANTER FRACTURE WITHOUT DISLOCATION. CHAIDEZ'S TRACTION APPLIED AT 5#. MEDICATED PRN TORADOL, NORCO AND FENTANYL PER EMR. BEDREST/2PA FOR REPOSITIONING IN BED. JUAREZ CATHETER IN PLACE. CLEARED BY CARDIOLOGY FOR SURGERY. PLAN FOR SURGERY TOMORROW. NPO AFTER MIDNIGHT.
--- NOTE | 2021-12-02 04:40 | NUR ---
SHIFT SUMMARY A/0 X4. AWAITING SURGERY TODAY ON L HIP, BUCKS TRACTION IN PLACE. PAIN MANAGED WITH PO PAIN MEDICATIONS. PT REPORTS MORE MUSCLE SPASMS TONIGHT. TOLERATED PO INTAKE AT BEGINING OF SHIFT, HAS BEEN NPO SINCE MIDNIGHT. BP INCREASED THIS PM, TREATED W/ PRN HYDRALAZINE, OTHER VITAL SIGNS STABLE. PT PLEASANT AND COOPERATIVE W/ CARE. WILL CONTINUE TO MONITOR AND REPORT TO ONCOMING RN.
--- NOTE | 2021-12-02 10:41 | NUR ---
Spiritual Care Visit Requested my nurse Diana. Pt. is awake in bed and welcomes my visit. Pt. is displaying evidence of isolation and lonliness. Through a calming presence and theraputic listening Pt. displays evidence of having less anxiety. Re-establish rapport and do a life review. 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 Prayed with Pt. and put my name on her whiteboard per her request. Pt. verbalized gratitude for the spiritual care visit. Thanked nurse Diana for her intuative request for spiritual care.
--- NOTE | 2021-12-02 13:59 | NUR ---
PATIENT JUST LEFT FOR THE OR.
--- NOTE | 2021-12-02 14:04 | NUR ---
PT TO SDS FROM ROOM 218. PT REPORTS NPO SINCE MIDNIGHT. TRACTION IN PLACED FROM FLOOR. PT REPORTS INCREASED PAIN. JUAREZ IN PLACE, CLEAR YELLOW URINE NOTED IN BAD. History, Chart, Medications and Allergies reviewed before start of procedure. Lungs clear T/O to Auscultation.
--- NOTE | 2021-12-02 17:15 | NUR ---
POST OP ARRIVES TO UNIT VIA HOSPITAL BED. ALERT & ORIENTED BUT C/O PAIN. CONCERNED SHE IS STILL IN PAIN. EDUCATED ABOUT PAIN MANAGEMENT & EXPECTATIONS. LUNGS CLEAR BUT SLIGHTLY DIM IN BASES. R HIP HAS AQUACEL ALONG POST HIP x 3. PPP. VSS. IVF CONTINUED. SIPS OF WATER & BITES OF APPLESAUCE GIVEN. WILL MEDICATE FOR PAIN.
--- NOTE | 2021-12-03 06:22 | NUR ---
PT C/O CHEST PAIN/PRESSURE THIS AM. VITALS OBTAINED, BP NOTED ELEVATED. PT MEDICATED FOR BP BY PRIMARY RN, EKG OBTAINED. DR LARSON NOTIFIED, VITALS, MEDS, AND EKG REVIEWED. NO NEW ORDERS REC. PRIMARY RN UPDATED.
--- NOTE | 2021-12-03 06:40 | NUR ---
PT A&O X 4 AND COOPERATIVE. DRESSING ON R HIP C/D/I WITH SMALL AMOUNTS OF SS FLUID. PT COMPLAINED OF 7-9/10 PN IN R HIP AND WAS MEDICATED WITH NORCO AND TORADOL, PER EMAR. AT ABOUT 0545 PT REPORTED CP. VITALS WERE TAKEN AT THAT TIME, AND PT HAD BLOOD PRESSURE OF 189/80. PT MEDICATED WITH HYDRALEZINE, PER EMAR, AND BLOOD PRESSURE DECREASED TO 141/59. DR FORTUNE NOTIFIED.
[2021-12-03 08:29] LABS: BASOPHILS ABSOLUTE AUTO 0.02 K/mm3 (0.00-0.23); BASOPHILS PERCENT AUTO 0 % (0-2); EOSINOPHILS PERCENT AUTO 0 % (0-6); Hematocrit 31.2 % (33.0-51.0); Hemoglobin 10.6 g/dL (11.5-16.0); IMMATURE GRAN PERCENT AUTO 1 % (0-1); LYMPHOCYTES ABSOLUTE AUTO 1.33 K/mm3 (0.84-5.20); LYMPHOCYTES PERCENT AUTO 8 % (21-46); MONOCYTES ABSOLUTE AUTO 1.51 K/mm3 (0.16-1.47); MONOCYTES PERCENT AUTO 9 % (4-13); Mean Corpuscular HGB 31.5 pg (26.0-34.0); Mean Corpuscular Volume 93 fL (80-100); Mean Platelet Volume 10.3 fL (9.1-12.4); NEUTROPHILS ABSOLUTE AUTO 14.37 K/mm3 (1.96-9.15); NEUTROPHILS PERCENT AUTO 83 % (41-73); Platelet Count 198 K/mm3 (150-400); RDW Coefficient Variation 13.2 % (11.7-14.2); Red Blood Cell Count 3.36 M/mm3 (3.80-5.20); White Blood Cell Count 17.33 K/mm3 (4.00-11.30)
[2021-12-03 08:50] LABS: Albumin, Blood 2.9 g/dL (3.4-5.0); Anion Gap 5 mmol/L (6-16); Blood Urea Nitrogen 24 mg/dL (8-24); Bun/Creatinine Ratio 42.1 (12.0-20.0); CO2, Blood 27 mmol/L (21-32); Calcium, Blood 8.8 mg/dL (8.5-10.1); Chloride, Blood 98 mmol/L (98-108); Creatinine, Blood 0.57 mg/dL (0.40-1.00); Glomerular Filtration Rate 88 (60-); Glucose, Blood 123 mg/dL (70-99); Phosphorus, Blood 2.5 mg/dL (2.5-4.9); Potassium, Blood 4.4 mmol/L (3.5-5.5); Sodium, Blood 130 mmol/L (136-145)
--- NOTE | 2021-12-03 10:28 | NUR ---
1005 PT CALLS SKIN CARE TECHNICIAN LIGHT TO REPORT SUBSTERNAL CHEST PAIN. PT UNABLE TO DESCRIBE PAIN BUT DOES REPORT IT INCREASES WITH A DEEP BREATH AND WITH PALPATION. SPOKE WITH DR MONTOYA REGARDING PAIN AND NEW ORDERS RECEIVED
--- NOTE | 2021-12-03 10:29 | NUR ---
1022 DR WHALEY HERE TO SEE PATIENT AND DISCUSSED WITH HIM THE EPISODE OF CHEST PAIN, NEW ORDERS RECEIVED
--- NOTE | 2021-12-03 11:16 | NUR ---
12/03/21 1116 Rosalba Dallas VERIFICATIONS: EDIT CHART.
--- NOTE | 2021-12-03 12:06 | NUR ---
Spiritual Care Visit. Pt. is in bed and welcomes my visit. Pt. is awaiting lunch and nutrition to arrive. Pt. coninues to display emotions of loneliness and isolation. Explored issues of significance and meaning, with a calming presence. Pt. verbalizes that a family member (DIL) is arriving in the afternoon to visit. Nutrition arrives with Pts. lunch. Prayed with Pt. Pt. verbalized gratitude for the spiritual care visit.
--- NOTE | 2021-12-03 17:57 | NUR ---
SHIFT SUMMARY: POD 1 PT A&OX4, PLEASANT AND COOPERATIVE. REPLACED THE TWO LOWER AQUACEL DRESSINGS TODAY 12/03/21. PT WAS PAINFUL THIS MORNING, PAIN MEDICATION REGIMENT WAS ADJUSTED, PT STATED HAVING BETTER PAIN CONTROL. PT TOLERATING PO INTAKE, DIET WAS ADJUSTED TO MECHANICAL SOFT. PHYSICAL THERAPY WORKED WITH THE PT TODAY, CURRENTLY UP IN THEIR CHAIR. USES CALL LIGHT APPROPRIATELY, CALL LIGHT WITHIN REACH. PLAN: PLACEMENT IN A SNF FOR CONTINUED RECOVERY
--- NOTE | 2021-12-04 06:27 | NUR ---
DATABASE ENGINEER SUMMARY PT A&O X4 AND COOPERATIVE. VSS. AQUACELL DRESSINGS OVER R HIP INCISION DRY AND INTACT WITH LIGHT SS DRAINAGE. PT REPORTED 9/10 PAIN AND LEG SPASMS EARLY IN SHIFT. SHE WAS MEDICATED WITH TYLENOL AND OXYCODONE AND SLEPT THROUGH MUCH OF THE REMAINDER OF THE SHIFT. NO OTHER ACUTE CHANGES THIS SHIFT.
--- NOTE | 2021-12-04 17:23 | NUR ---
ASSUMED CARE OF PATIENT PRIMARY RN FROM JESSICA SEXTON RN AT 1600. STUDENT NURSE IS PROVIDING CARE WITH RN OVERSIGHT.
--- NOTE | 2021-12-04 17:33 | NUR ---
SHIFT SUMMARY - POD 2 PT IS A&OX4 PLEASANT AND COOPERATIVE. VSS THROUGHOUT SHIFT. AQUACEL'S SHOW SOME LIGHT SHADOWING BUT ARE DRY AND INTACT. WORKED WITH PT/OT TODAY, USING FWW AND 1 ASSIST TO STAND & PIVOT TO BEDSIDE COMMODE. REMOVED JUAREZ THIS MORNING, PT IS VOIDING OFTEN YELLOW/CLEAR. LR AT 80mL/HR DISCONTINUED. PT IS TOLERATING PO INTAKE, DENIES N/V. USES CALL LIGHT APPROPRIATELY, CALL LIGHT WITHIN REACH. PLAN: POSSIBLY DISCHARGE TOMORROW TO SNF.
[2021-12-05 04:58] LABS: BASOPHILS ABSOLUTE AUTO 0.02 K/mm3 (0.00-0.23); BASOPHILS PERCENT AUTO 0 % (0-2); EOSINOPHILS PERCENT AUTO 1 % (0-6); Hematocrit 28.8 % (33.0-51.0); Hemoglobin 9.6 g/dL (11.5-16.0); IMMATURE GRAN ABSOLUTE AUTO 0.12 K/mm3 (0.00-0.10); IMMATURE GRAN PERCENT AUTO 1 % (0-1); LYMPHOCYTES PERCENT AUTO 15 % (21-46); MONOCYTES ABSOLUTE AUTO 1.03 K/mm3 (0.16-1.47); MONOCYTES PERCENT AUTO 10 % (4-13); Mean Corpuscular HGB 31.4 pg (26.0-34.0); Mean Corpuscular HGB Conc 33.3 g/dL (31.5-36.5); Mean Corpuscular Volume 94 fL (80-100); Mean Platelet Volume 10.2 fL (9.1-12.4); NEUTROPHILS ABSOLUTE AUTO 7.44 K/mm3 (1.96-9.15); NEUTROPHILS PERCENT AUTO 73 % (41-73); Platelet Count 181 K/mm3 (150-400); RDW Coefficient Variation 13.2 % (11.7-14.2); RDW Standard Deviation 45.7 fL (35.1-46.3); Red Blood Cell Count 3.06 M/mm3 (3.80-5.20); White Blood Cell Count 10.21 K/mm3 (4.00-11.30)
--- NOTE | 2021-12-05 05:04 | NUR ---
PT IS A&OX4, 2 PERSON MOD ASSIST TO BSC, AND IS ABLE TO MAKE NEEDS KNOWN. PT IS POST OP DAY 3 FOR HIP SURGERY, AQUACEL DRESSING IN PLACE ON R HIP, HAS SCANT DRAINAGE ON LOWER DRESSING, CSM IS INTACT. PAIN IS CONTROLLED WITH PRN BRONSON 10MG. PT ABLE TO TAKE MEDS WHOLE WITH THINS. PT RESTS BETWEEN CARES, SLEEPS 6+ HOURS THIS SHIFT. WILL CONTINUE TO MONITOR THIS PT AND GIVE HANDOFF REPORT TO ONCOMING NURSE.
[2021-12-05 05:26] LABS: Albumin, Blood 2.7 g/dL (3.4-5.0); Albumin/Globulin Ratio 0.8 (0.8-1.8); Bilirubin, Total 0.6 mg/dL (0.1-1.0); Bun/Creatinine Ratio 32.2 (12.0-20.0); Calcium, Blood 8.4 mg/dL (8.5-10.1); Creatinine, Blood 0.62 mg/dL (0.40-1.00); Globulin, Blood 3.5 g/dL (2.2-4.0); Magnesium, Blood 1.9 mg/dL (1.6-2.4); Phosphorus, Blood 3.2 mg/dL (2.5-4.9); Potassium, Blood 4.4 mmol/L (3.5-5.5); Total Protein, Blood 6.2 g/dL (6.4-8.2)
[2021-12-05 11:38] LABS: SARS-Cov-2 (COVID-19) PCR, MMC NEGATIVE (NEGATIVE)
--- NOTE | 2021-12-05 13:17 | NUR ---
report given to Rj at [facility]
--- NOTE | 2021-12-05 13:29 | NUR ---
pt using bsc. call light in reach.
--- NOTE | 2021-12-05 14:04 | NUR ---
PT LEFT UNIT IN WC W/POSSESSIONS. TRANSPORT HAS DC PAPERWORK IN HAND.
== END 2021-12-05 14:03 | disposition home or self-care (01) | DRG 481 ==
LOC: ER 00:33 → SURS 03:18
PROVIDERS: Emergency Medicine; Family Medicine; Hospitalist; Orthopaedic Surgery; ADMIT Internal Medicine
PROC: 3E0T3BZ Introduction of Anesthetic Agent into Peripheral Nerves and Plexi, Percutaneous Approach (ICD-10-PCS; principal; 2021-12-01)
PROC: 3E0T33Z Introduction of Anti-inflammatory into Peripheral Nerves and Plexi, Percutaneous Approach (ICD-10-PCS; 2021-12-01)
PROC: 0QS636Z Reposition Right Upper Femur with Intramedullary Internal Fixation Device, Percutaneous Approach (ICD-10-PCS; 2021-12-02)
DX: S72.141A Displaced intertrochanteric fracture of right femur, initial encounter for closed fracture (principal); I48.20 Chronic atrial fibrillation, unspecified; E87.1 Hypo-osmolality and hyponatremia; Z66 Do not resuscitate; E03.9 Hypothyroidism, unspecified; Z20.822 Contact with and (suspected) exposure to COVID-19; F41.9 Anxiety disorder, unspecified; F32.A Depression, unspecified; I10 Essential (primary) hypertension; I51.89 Other ill-defined heart diseases; D72.829 Elevated white blood cell count, unspecified; I48.0 Paroxysmal atrial fibrillation; Z88.2 Allergy status to sulfonamides; Z88.0 Allergy status to penicillin; Z91.011 Allergy to milk products; Z91.040 Latex allergy status; Z88.5 Allergy status to narcotic agent; Z90.49 Acquired absence of other specified parts of digestive tract; Z98.890 Other specified postprocedural states; Z79.899 Other long term (current) drug therapy; Z79.01 Long term (current) use of anticoagulants; W18.39XA Other fall on same level, initial encounter; Y93.01 Activity, walking, marching and hiking; Y92.002 Bathroom of unspecified non-institutional (private) residence as the place of occurrence of the external cause
CPT/HCPCS: 0241U; 36415; 51702; 64450; 70450; 71045; 73502; 73552; 80053; 80069; 81001; 83735; 84100; 84439; 84443; 84484; 85025; 87077; 87086; 87186; 93005; 93010; 93306; 94762; 96374; 96375; 97110; 97116; 97162; 97166; 97530; 97535; 99285-25; A9270; C1713; J0360; J0690; J1100; J1170; J1885; J2060; J2270; J2370; J2405; J2704; J3010; J3360; J7120; U0004

== ENCOUNTER 2022-03-15 04:30 | Emergency (ER) | payer MEDICARE, OTHER ==
[~2022-03-15] VITALS: Ht 152.4 cm; Wt 49.9 kg
[2022-03-15] MEDS ORDERED: LIDO700A20 TOP (05:33)
[2022-03-15] MEDS ORDERED: CELE100 PO (05:33)
== END 2022-03-15 06:12 | disposition home or self-care (01) ==
LOC: ER 04:30
DX: S23.29XA Dislocation of other parts of thorax, initial encounter (principal); W18.2XXA Fall in (into) shower or empty bathtub, initial encounter; Z88.5 Allergy status to narcotic agent; Z88.0 Allergy status to penicillin; Z88.2 Allergy status to sulfonamides; Z88.8 Allergy status to other drugs, medicaments and biological substances; Z91.040 Latex allergy status; Z91.011 Allergy to milk products; Z79.899 Other long term (current) drug therapy
CPT/HCPCS: 71101; A9270; J1885

== ENCOUNTER 2022-03-28 06:31 | Emergency (ER) | payer MEDICARE, OTHER ==
[~2022-03-28] VITALS: Ht 165.1 cm; Wt 61.2 kg
[~2022-03-28 06:31] MED LIST changes: +CELE100 PO
== END 2022-03-28 10:47 | disposition home or self-care (01) ==
LOC: ER 06:31
DX: S20.211A Contusion of right front wall of thorax, initial encounter (principal); W19.XXXA Unspecified fall, initial encounter; Z79.899 Other long term (current) drug therapy
CPT/HCPCS: 71101; A9270

== ENCOUNTER 2022-09-11 18:09 | Inpatient (IN) | payer MEDICARE, OTHER ==
[~2022-09-11] VITALS: Ht 165.1 cm; Wt 55.5 kg
[~2022-09-11 18:09] MED LIST changes: +MOBIC15 MG PO
[2022-09-11 18:43] LABS: BASOPHILS ABSOLUTE AUTO 0.03 K/mm3 (0.00-0.23); BASOPHILS PERCENT AUTO 0 % (0-2); EOSINOPHILS ABSOLUTE AUTO 0.05 K/mm3 (0.00-0.68); EOSINOPHILS PERCENT AUTO 0 % (0-6); Hemoglobin 9.5 g/dL (11.5-16.0); IMMATURE GRAN ABSOLUTE AUTO 0.05 K/mm3 (0.00-0.10); IMMATURE GRAN PERCENT AUTO 0 % (0-1); LYMPHOCYTES ABSOLUTE AUTO 1.08 K/mm3 (0.84-5.20); LYMPHOCYTES PERCENT AUTO 8 % (21-46); MONOCYTES PERCENT AUTO 8 % (4-13); Mean Corpuscular HGB 31.6 pg (26.0-34.0); Mean Corpuscular HGB Conc 32.8 g/dL (31.5-36.5); Mean Corpuscular Volume 96 fL (80-100); Mean Platelet Volume 10.1 fL (9.1-12.4); NEUTROPHILS ABSOLUTE AUTO 11.07 K/mm3 (1.96-9.15); NEUTROPHILS PERCENT AUTO 83 % (41-73); Platelet Count 207 K/mm3 (150-400); RDW Standard Deviation 49.6 fL (35.1-46.3); Red Blood Cell Count 3.01 M/mm3 (3.80-5.20); White Blood Cell Count 13.28 K/mm3 (4.00-11.30)
[2022-09-11 18:58] LABS: Albumin, Blood 3.3 g/dL (3.4-5.0); Albumin/Globulin Ratio 0.9 (0.8-1.8); Bilirubin, Total 0.8 mg/dL (0.1-1.0); Calcium, Blood 8.5 mg/dL (8.5-10.1); Creatinine, Blood 0.85 mg/dL (0.40-1.00); Globulin, Blood 3.6 g/dL (2.2-4.0); Potassium, Blood 4.3 mmol/L (3.5-5.5); Total Protein, Blood 6.9 g/dL (6.4-8.2)
[2022-09-11 20:19] LABS: Influenza A, PCR NEGATIVE (NEGATIVE); Influenza B, PCR NEGATIVE (NEGATIVE); Resp Syncytial Virus, PCR NEGATIVE (NEGATIVE); SARS-Cov-2 (COVID-19) PCR, MMC NEGATIVE (NEGATIVE)
--- NOTE | 2022-09-11 22:40 | NUR ---
ADMIT NOTE; PT ARRIVED TO THE FLOOR VIA ED SMOOTH. THE PT IS ABLE TO STAND AND TRANSFER HER SELF TO THE BED FROM THE GURNEY VIA STANDBY ASSIST. THE PT IS AXO X4. THE PT ARRIVES ON 4L NC AND ROCEPEHIN IS RUNNING UPON ADMIT. THE PT DENIES ANY CHEST PAIN, BUT THE PT DOES REPORT SOME PAIN IN HER NECK AND BACK. THE PT APPEARS TO BE IN NO ACUTE DISTRESS UPON ADMIT.
--- NOTE | 2022-09-12 01:00 | NUR ---
CALLED DR DILLON ABOUT CONSULT FOR PT R/T TO PNEUMONIA, ASKED WHICH GROUP HE WANTED CONSULTED. TO LOOK OVER PTS CHART AND PUT IN CONSULTING GROUP IF HE THINKS A CONSULT IS NEEDED. WILL CALL IN CONSULT IF A CONSULTING GROUP IS ADDED.
[2022-09-12 05:06] LABS: Hematocrit 28.2 % (33.0-51.0); Hemoglobin 9.4 g/dL (11.5-16.0); Mean Corpuscular HGB 31.5 pg (26.0-34.0); Mean Corpuscular HGB Conc 33.3 g/dL (31.5-36.5); Mean Corpuscular Volume 95 fL (80-100); Mean Platelet Volume 10.1 fL (9.1-12.4); Platelet Count 207 K/mm3 (150-400); RDW Coefficient Variation 14.1 % (11.7-14.2); RDW Standard Deviation 48.7 fL (35.1-46.3); Red Blood Cell Count 2.98 M/mm3 (3.80-5.20); White Blood Cell Count 10.49 K/mm3 (4.00-11.30)
--- NOTE | 2022-09-12 05:07 | NUR ---
SHIFT SUMMARY; NO ACUTE CHANGES OVERNIGHT. THE PT IS AXO X4 AND A STANDBY ASSIST TO THE BSC. THE PT HAS 4L NC ON TO MAINTAIN O2 SATS. 3L NC IS BASELINE. THE PT HAS BEEN RESTLESS TONIGHT. THE PT HAS HAD SOME NECK PAIN THIS PM, PRN TYLENOL GIVEN. CURRENTLY THE PT IS RESTING IN BED WITH THE BED IN THE LOWEST POSITION AND THE CALL LIGHT AT BEDSIDE.
[2022-09-12 05:41] LABS: Bun/Creatinine Ratio 34.1 (12.0-20.0); Calcium, Blood 8.4 mg/dL (8.5-10.1); Creatinine, Blood 0.62 mg/dL (0.40-1.00); Potassium, Blood 4.2 mmol/L (3.5-5.5)
--- NOTE | 2022-09-12 08:17 | NUR ---
NOTE: PATIENT REPORT STABBING PAIN 7/10 TO L SHOULDER AFTER USING THE BSC. DENIES CP/PRESSURE, N/V, SOB. MEDICATED X1 c PO TYLENOL AND APPLIED HEATING PAD TO AFFECTED SITE AT THIS TIME. FEED [facility]ILL LAB TECHNICIANAIDA WAS NOTIFIED c THE PATIENT CONCERN. PER AIDA TO CONTINUE MONITOR PATIENT SYMPTOMS AND IF WILL PROGRESS TO CALL THE DOCTOR. PATIENT SITTING UP IN THE RECLINER CHAIR AT THIS TIME. CALL LIGHT IN REACH
--- NOTE | 2022-09-12 17:56 | NUR ---
SHIFT SUMMARY: PATIENT A&OX4. ANXIOUS AT TIMES, PLEASANT AND COOPERATIVE c CARE. USES CALL LIGHT APPROPRIATELY AND ABLE TO MAKE NEEDS KNOWN. PATIENT HAD ONE EPISODE OF SHOULDER PAIN 7/10 BEGINNING OF SHIFT. MEDICATED X1 c PO TYLENOL AND APPLIED HEATING PAD TO AFFECTED SITE. PATIENT REPORT PAIN WAS RESSOLVED. DENIES CP/PRESSURE, SOB, N/V. ON TELE, SR/ST HR RANGES 78-110 T/O SHIFT, PER PHOTOGRAPHERS' MODEL. PATIENT ON O2 4L VIA NC c SPO2 RANGES 93-95% T/O SHIFT. LUNGS HAS SOME COARSE/WHEEZES T/O TO AUSCULTATION. PATIENT IS CONTINENT OF URINE AND STOOL. USES BS c SBA AND FWW. PATIENT HAS BEEN AMBULATING IN HALLWAY AND BACK IN ROOM X2 TODAY. TOLERATING SITTING UP IN THE RECLINER CHAIR T/O THE DAY. AT 1527 VITAL SIGNS TAKEN; BP 175/83, HR OF 78 BPM. MEDICATED X1 c 10 MG IV HYDRALAZINE. VITALS WAS RECHECK AT AROUND 1702; BP 144/71 c HR OF 86 BPM. PATIENT REPORTS PAIN 6/10 TO LOWER BACK . MEDICATED X1 c 10 MG PO OXYCODONE. PATIENT REPORTS PAIN DOWN TO 2/10. PATIENT HAS BEEN TOLERATING PO WELL. VITAL SIGNS REVIEWED. IV TO LAC SALINE LOCKED. RECEIVED SCHEDULED MEDS THIS SHIFT. CALL LIGHT IN REACH.
--- NOTE | 2022-09-12 19:18 | NUR ---
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 AWAITING FOR THE RECORDS, HOPEFULLY TOMORROW.
--- NOTE | 2022-09-13 05:26 | NUR ---
SHIFT SUMMARY 86 YR F ADMITTED ON 09/11/22 FOR ACUTE/CHRONIC RF W/ HYPOXIA. FULL CODE. NO ACUTE CHANGES THIS SHIFT. PT C/O PAIN AND WAS MEDICATED PER EMAR. SHE STATES THE PAIN MEDS ARE AFFECTIVE. SHE SLEPT FOR SEVERAL HOURS THIS SHIFT AND CALLS APPROPRIATELY TO MAKE HER NEEDS KNOWN. PER FRAME STRIPPER, PT HAD A 9 BEAT RUN OF SVT @ 0214. THIS NURSE CHECKED ON PT AND SHE WAS ASYMPTOMATIC AND HAD NO C/O CHEST PAIN OR PRESSURE. THERE WERE NO OTHER EPISODES THIS SHIFT.
--- NOTE | 2022-09-13 17:44 | NUR ---
SHIFT SUMMARY PT A&OX4 AND PLEASANT. PT C/O PAIN IN BACK AND LEGS TODAY. REPOSITIONING AND MEDICTATED PER EMAR WITH GOOD EFFECT. PT UP TO CHAIR FOR MOST OF DAY. TOLERATING WELL. BG SLIGHTLY ELEVATED. NO ACUTE CHANGES. USES CALL LIGHT APPROPRIATLY. BED IN LOWEST POSITION AND CALL LIGHT IN REACH.
--- NOTE | 2022-09-14 05:12 | NUR ---
SHIFT SUMMARY 86 YR F ADMITTED ON 09/11/22 FOR ACUTE/CHRONIC RF W/ HYPOXIA. FULL CODE. NO ACUTE CHANGES THIS SHIFT. PT IS A&O AND CALLS APPROPRIATELY FOR ASSISTANCE WITH BATHROOMING. SHE WAS UP IN HER CHAIR UNTIL APPROX 2100 AND WAS GIVEN PAIN MEDS PER EMAR BEFORE GOING TO BED. SHE APPEARS TO BE RESTING COMFORTABLY AND HAS BEEN SLEEPING FOR SEVERAL HOURS NOW.
[2022-09-14 05:41] LABS: BASOPHILS ABSOLUTE AUTO 0.06 K/mm3 (0.00-0.23); BASOPHILS PERCENT AUTO 0 % (0-2); EOSINOPHILS ABSOLUTE AUTO 0.02 K/mm3 (0.00-0.68); EOSINOPHILS PERCENT AUTO 0 % (0-6); Hematocrit 30.6 % (33.0-51.0); Hemoglobin 10.3 g/dL (11.5-16.0); IMMATURE GRAN ABSOLUTE AUTO 0.21 K/mm3 (0.00-0.10); IMMATURE GRAN PERCENT AUTO 1 % (0-1); LYMPHOCYTES ABSOLUTE AUTO 2.14 K/mm3 (0.84-5.20); LYMPHOCYTES PERCENT AUTO 11 % (21-46); MONOCYTES ABSOLUTE AUTO 2.33 K/mm3 (0.16-1.47); MONOCYTES PERCENT AUTO 12 % (4-13); Mean Corpuscular HGB 30.8 pg (26.0-34.0); Mean Corpuscular HGB Conc 33.7 g/dL (31.5-36.5); Mean Corpuscular Volume 92 fL (80-100); Mean Platelet Volume 10.3 fL (9.1-12.4); NEUTROPHILS ABSOLUTE AUTO 14.05 K/mm3 (1.96-9.15); NEUTROPHILS PERCENT AUTO 75 % (41-73); Platelet Count 243 K/mm3 (150-400); RDW Coefficient Variation 14.3 % (11.7-14.2); RDW Standard Deviation 48.2 fL (35.1-46.3); Red Blood Cell Count 3.34 M/mm3 (3.80-5.20); White Blood Cell Count 18.81 K/mm3 (4.00-11.30)
[2022-09-14 07:28] LABS: Albumin, Blood 2.9 g/dL (3.4-5.0); Anion Gap 6 mmol/L (6-16); Blood Urea Nitrogen 33 mg/dL (8-24); Bun/Creatinine Ratio 35.9 (12.0-20.0); CO2, Blood 26 mmol/L (21-32); Calcium, Blood 8.2 mg/dL (8.5-10.1); Chloride, Blood 101 mmol/L (98-108); Creatinine, Blood 0.92 mg/dL (0.40-1.00); Glomerular Filtration Rate 60 (60-); Glucose, Blood 106 mg/dL (70-99); Magnesium, Blood 2.3 mg/dL (1.6-2.4); Phosphorus, Blood 2.9 mg/dL (2.5-4.9); Potassium, Blood 3.7 mmol/L (3.5-5.5); Sodium, Blood 133 mmol/L (136-145)
--- NOTE | 2022-09-14 17:52 | NUR ---
SHIFT SUMMARY PT A&OX4 AND PLEASANT. NO ACUTE CHANGES. PT WORKED WITH PHYSICAL THERAPY AND OT TODAY. PT'S SATS DROPPED TO 81% WHILE AMBULATING WITH OT. SATS INCREASED UP TO 91% WITH REST AFTER SEVERAL MINUTES. PT TOLERATED AMBULATING WITH PT MUCH BETTER AND SATS ONLY DROPPED TO 89%. PT ENCOURAGED TO AMBULATE TO BATHROOM A COUPLE TIMES A SHIFT. LESS COMPLAINTS OF PAIN TODAY. MEDICATED PER EMAR AND REPOSITIONED. CHEST XR PERFORMED AT BEDSIDE IN AFTERNOON. PT UP TO CHAIR FOR MOST OF DAY. BED IN LOWEST POSITION AND CALL LIGHT IN REACH.
[2022-09-14] MEDS ORDERED: ZOLOFT25 MG PO ×2 (23:37)
[2022-09-14] MEDS ORDERED: DICLOFENAC SOD100 G1 TOP ×2 (23:39)
--- NOTE | 2022-09-15 06:23 | NUR ---
EMOTIONAL SUPPORT TEACHER SUMMARY PT A/OX4. PT REMAINS ON 4L HUMIDIFIED O2 NC; PT HAS SHARP DESATURATIONS WHEN UP TO THE BSC DOWN INTO THE 70'S; PT REQUIRES MORE OXYGEN DURING ACTIVITY AND PROLONGED RECOVERY TIME WHEN RETURNING TO REST. PT C/O OF PAIN IN HER LOWER BACK/LEFT HIP; MED F/PAIN PER EMAR 2X. THIS AM PT C/O OF STRANGE MOUTH SENSATION; NOTED WHITE FILM COVERING TONGUE CONSISTANT W/THRUSH. WILL CONTACT SATELLITE COMMUNICATIONS OPERATOR OR REPORT TO ONCOMING NURSE. PT IS A 1PA T/BSC. ABLE TO MAKE NEEDS KNOWN. PLEASANT AND COOPERATIVE WITH CARE. CALL LIGHT ACCESSIBLE.
[2022-09-15 06:49] LABS: Albumin, Blood 2.6 g/dL (3.4-5.0); Anion Gap 4 mmol/L (6-16); Blood Urea Nitrogen 31 mg/dL (8-24); Bun/Creatinine Ratio 37.2 (12.0-20.0); CO2, Blood 27 mmol/L (21-32); Calcium, Blood 8.4 mg/dL (8.5-10.1); Chloride, Blood 101 mmol/L (98-108); Creatinine, Blood 0.83 mg/dL (0.40-1.00); Glomerular Filtration Rate 68 (60-); Glucose, Blood 108 mg/dL (70-99); Phosphorus, Blood 2.2 mg/dL (2.5-4.9); Potassium, Blood 4.1 mmol/L (3.5-5.5); Sodium, Blood 132 mmol/L (136-145)
--- NOTE | 2022-09-15 16:52 | NUR ---
SHIFT SUMMARY PT IS ALERT AND ORIENTED X4. TRANSFERRED TO BEDSIDE COMMODE AND INTO CHAIR. PT EXPIRENCES SIGNIFICANT DESATUATION WITH ANY AMOUNT OF EXERTION. SAT WENT FROM 94% TO 82% WITH BLOWING HER NOSE. PT REPORTS PAIN TO HER HIPS. BRUISES NOTED ON THE RIGHT HIP DUE TO FALL AT HOME. BED IS IN THE LOWEST POSITION WITH THE CALL LIGHT IN REACH.
--- NOTE | 2022-09-16 07:31 | NUR ---
HOGSHEAD PACKER SUMMARY: A&Ox4. PLEASANT AND COOPERATIVE WITH CARE. CALLS APPROPRIATELY AND ABLE TO COMMUNICATE NEEDS EFFECTIVELY. ORIENTED TO OWN ABILITY AND EXHIBITS GOOD JUDGMENT. TWO EXPISODES OF PAIN FOR WHICH SHE WAS PROVIDED OXYCODONE PRN AND A HEATING PAD TO LEFT SHOULDER. PRN HYDRALAZINE x1 THIS AM FOR SBP >180, WHICH MAY HAVE BEEN RELATED TO HER PAIN. O2 @ 4L/min VIA NC. REPORT TO ONCOMING RN.
--- NOTE | 2022-09-16 19:06 | NUR ---
SHIFT SUMMARY- PT IS ALERT AND ORIENTED X4. 4L NC AND UP IN CHAIR. PT WAS FEELING WORSE THAN YESTERDAY AND I NOTED LABORED BREATHING. MD NOTIFIED. SEE ORDERS. PT REPORTING PAIN DUE TO ARTHRITIS. CALL LIGHT IS IN REACH. PT IS APPROPRIATE AND UNDERSTANDS LIMITATIONS AND WILL CALL NEEDED.
--- NOTE | 2022-09-17 04:25 | NUR ---
SHIFT NOTE PATIENT IS ALERT AND ORIENTED, COOPERATIVE WITH CARE. 4L NC, INCREASED RESPIRATIONS WHEN UP TO BSC, WITH MODERATE RECOVERY TIME. PAIN TO THE R SHOULDER AND BACK FROM CHRONIC ARTHRITIS TREATED PER SEP WITH IV FENTANYL ADDED, GOOD RESULTS NOTED AND PATIENT WAS ABLE TO GET SOME REST AT 0400. UP WITH 1X ASSIST, IV SALINED LOCKED AFET ABT ADMIN. NO OTHER ISSUES TO REPORT.
[2022-09-17 05:43] LABS: BASOPHILS ABSOLUTE AUTO 0.04 K/mm3 (0.00-0.23); BASOPHILS PERCENT AUTO 0 % (0-2); EOSINOPHILS ABSOLUTE AUTO 0.06 K/mm3 (0.00-0.68); EOSINOPHILS PERCENT AUTO 0 % (0-6); Hemoglobin 8.7 g/dL (11.5-16.0); IMMATURE GRAN ABSOLUTE AUTO 0.25 K/mm3 (0.00-0.10); IMMATURE GRAN PERCENT AUTO 2 % (0-1); LYMPHOCYTES ABSOLUTE AUTO 1.59 K/mm3 (0.84-5.20); LYMPHOCYTES PERCENT AUTO 10 % (21-46); MONOCYTES PERCENT AUTO 11 % (4-13); Mean Corpuscular HGB 31.2 pg (26.0-34.0); Mean Corpuscular HGB Conc 33.5 g/dL (31.5-36.5); Mean Corpuscular Volume 93 fL (80-100); Mean Platelet Volume 9.6 fL (9.1-12.4); NEUTROPHILS ABSOLUTE AUTO 12.12 K/mm3 (1.96-9.15); NEUTROPHILS PERCENT AUTO 77 % (41-73); Platelet Count 312 K/mm3 (150-400); RDW Coefficient Variation 14.3 % (11.7-14.2); RDW Standard Deviation 49.1 fL (35.1-46.3); Red Blood Cell Count 2.79 M/mm3 (3.80-5.20); White Blood Cell Count 15.76 K/mm3 (4.00-11.30)
[2022-09-17 05:59] LABS: Albumin, Blood 2.5 g/dL (3.4-5.0); Anion Gap 2 mmol/L (6-16); Blood Urea Nitrogen 27 mg/dL (8-24); Bun/Creatinine Ratio 36.2 (12.0-20.0); CO2, Blood 29 mmol/L (21-32); Calcium, Blood 8.4 mg/dL (8.5-10.1); Chloride, Blood 103 mmol/L (98-108); Creatinine, Blood 0.75 mg/dL (0.40-1.00); Glomerular Filtration Rate 77 (60-); Glucose, Blood 110 mg/dL (70-99); Magnesium, Blood 2.5 mg/dL (1.6-2.4); Phosphorus, Blood 2.9 mg/dL (2.5-4.9); Potassium, Blood 4.3 mmol/L (3.5-5.5); Sodium, Blood 134 mmol/L (136-145)
--- NOTE | 2022-09-17 18:10 | NUR ---
SHIFT SUMMARY PT IS ALERT AND ORIENTED X4. 4L NC, SOB ON EXERTION. PT HAS BEEN UP TO THE BEDSIDE COMMODE AND RECLINER FOR MOST OF THE DAY. PT REPORTED PAIN IN THE HIP, BACK, AND LEFT SHOULDER. TREATED PER EMAR. PER PT, SHE IS FEELING BETTER TODAY THAN SHE WAS YESTERDAY. PT IS APPROPRIATE AND USES CALL LIGHT WHEN SHE NEEDS ANYTHING.
[2022-09-18 05:24] LABS: BASOPHILS ABSOLUTE AUTO 0.04 K/mm3 (0.00-0.23); BASOPHILS PERCENT AUTO 0 % (0-2); EOSINOPHILS ABSOLUTE AUTO 0.13 K/mm3 (0.00-0.68); EOSINOPHILS PERCENT AUTO 1 % (0-6); Hemoglobin 9.4 g/dL (11.5-16.0); IMMATURE GRAN ABSOLUTE AUTO 0.37 K/mm3 (0.00-0.10); IMMATURE GRAN PERCENT AUTO 3 % (0-1); LYMPHOCYTES ABSOLUTE AUTO 2.11 K/mm3 (0.84-5.20); LYMPHOCYTES PERCENT AUTO 15 % (21-46); MONOCYTES ABSOLUTE AUTO 1.45 K/mm3 (0.16-1.47); MONOCYTES PERCENT AUTO 10 % (4-13); Mean Corpuscular HGB 30.8 pg (26.0-34.0); Mean Corpuscular HGB Conc 32.4 g/dL (31.5-36.5); Mean Corpuscular Volume 95 fL (80-100); Mean Platelet Volume 9.6 fL (9.1-12.4); NEUTROPHILS ABSOLUTE AUTO 9.91 K/mm3 (1.96-9.15); NEUTROPHILS PERCENT AUTO 71 % (41-73); Platelet Count 365 K/mm3 (150-400); RDW Coefficient Variation 14.1 % (11.7-14.2); RDW Standard Deviation 49.2 fL (35.1-46.3); Red Blood Cell Count 3.05 M/mm3 (3.80-5.20); White Blood Cell Count 14.01 K/mm3 (4.00-11.30)
--- NOTE | 2022-09-18 05:35 | NUR ---
SHIFT SUMMARY PT A&O X 4- PT UP TO BEDSIDE COMMODE DURING BEDSIDE REPORT- PT MEDICATED FOR PAIN AND SLEEP ONCE IN THE NIGHT OF THIS NOTE- PT CONTINUES TO HAVE LABORED BREATHING WITH ACTIVITY- BED LOW POSITION, CALL LIGHT WITHIN REACH, PT USES CALL LIGHT APPROPRIATELY
--- NOTE | 2022-09-18 17:29 | NUR ---
SHIFT SUMMARY: PT A&O X4. PT HAS BEEN PLEASANT AND COOPERATIVE THROUGHOUT SHIFT. NO ACUTE CHANGES WITH PT THIS SHIFT. PT HAS C/O 7-8/10 PAIN TWICE THIS SHIFT IN NECK AND BACK. PT ON 4L TOLERATING WELL. SLIGHTLY SOB W/ AMBULATION. PT ON TELE RUNNING SINUS RHYTHM. PT HAS BEEN IN RECLINER MOST OF SHIFT. [place] [facility] [place], FWW, AND GAIT BELT. PT ABLE TO WORK WITH PHYSICAL THERAPY THIS MORNING. CALL LIGHT IN REACH. BED IN LOWEST POSITION. WILL CONTINUE TO MONITOR.
[2022-09-19 05:24] LABS: BASOPHILS ABSOLUTE AUTO 0.04 K/mm3 (0.00-0.23); BASOPHILS PERCENT AUTO 0 % (0-2); EOSINOPHILS PERCENT AUTO 1 % (0-6); Hemoglobin 8.5 g/dL (11.5-16.0); IMMATURE GRAN ABSOLUTE AUTO 0.42 K/mm3 (0.00-0.10); IMMATURE GRAN PERCENT AUTO 4 % (0-1); LYMPHOCYTES ABSOLUTE AUTO 1.85 K/mm3 (0.84-5.20); LYMPHOCYTES PERCENT AUTO 16 % (21-46); MONOCYTES ABSOLUTE AUTO 1.09 K/mm3 (0.16-1.47); MONOCYTES PERCENT AUTO 9 % (4-13); Mean Corpuscular HGB 30.9 pg (26.0-34.0); Mean Corpuscular HGB Conc 32.7 g/dL (31.5-36.5); Mean Corpuscular Volume 95 fL (80-100); Mean Platelet Volume 9.6 fL (9.1-12.4); NEUTROPHILS ABSOLUTE AUTO 8.16 K/mm3 (1.96-9.15); NEUTROPHILS PERCENT AUTO 70 % (41-73); Platelet Count 348 K/mm3 (150-400); RDW Coefficient Variation 14.1 % (11.7-14.2); RDW Standard Deviation 48.7 fL (35.1-46.3); Red Blood Cell Count 2.75 M/mm3 (3.80-5.20); White Blood Cell Count 11.66 K/mm3 (4.00-11.30)
--- NOTE | 2022-09-19 06:18 | NUR ---
SHIFT SUMMARY PT A&O X 4, PT IN CHAIR AT THE BEGINNING OF THE SHIFT- ASSISTED PT TO BED WITHOUT PROBLEMS, PT UP TO [facility] [place] T/O NIGHT TO URINATE- MEDICATED PT WITH OXYCODONE X 2 FOR CHRONIC LOWER BACK PAIN- PT REQUESTED MELATONIN AND SLEPT FOR A FEW PT HYPERTENSIVE IN AM D/T INCREASED BACK PAIN- PT REPORTED PAIN IS CHRONIC AND HURTS WHEN LAYING IN ONE PLACE TOO LONG- ASSISTED WITH REPOSITIONING FOR COMFORT, BED LOW POSITION, CALL LIGHT WITHIN REACH
--- NOTE | 2022-09-19 19:03 | NUR ---
SHIFT SUMMARY: PT A&O X4. PT HAS BEEN PLEASANT AND COOPERATIVE WITH ALL CARE THIS SHIFT. NO ACUTE CHANGES WITH PT THIS SHIFT. PT C/O INCREASED PAIN ON PREVIOUS SHIFT. PT HAS PRN OXY 10MG AND NEW SCHEDULED MS CONTIN 15MG. PT ON 4L TOLERATING WELL WITH REST. PT REQUIRES INCREASED 02 WITH AMBULATION. CALL LIGHT IN REACH. WILL CONTINUE TO MONITOR.
--- NOTE | 2022-09-20 04:19 | NUR ---
SHIFT SUMMARY 86 YR F ADMITTED ON 09/11/22 FOR RESPIRATORY FAILURE/PNA. DNR. NO ACUTE CHANGES THIS SHIFT. PT IS PLEASANT AND COOPERATIVE W/ CARE, AND CALLS APPROPRIATELY FOR ASSISTANCE. PAIN SEEMS TO BE CONTROLLED W/ NEW PAIN MEDS PER EMAR. SOB W/ EXERTION BUT RECOVERS WELL. PLAN IS TO RETURN TO [facility] WHERE SHE CURRENTLY RESIDES.
[2022-09-20 05:04] LABS: BASOPHILS ABSOLUTE AUTO 0.02 K/mm3 (0.00-0.23); BASOPHILS PERCENT AUTO 0 % (0-2); EOSINOPHILS ABSOLUTE AUTO 0.15 K/mm3 (0.00-0.68); EOSINOPHILS PERCENT AUTO 2 % (0-6); Hemoglobin 8.7 g/dL (11.5-16.0); IMMATURE GRAN ABSOLUTE AUTO 0.44 K/mm3 (0.00-0.10); IMMATURE GRAN PERCENT AUTO 4 % (0-1); LYMPHOCYTES ABSOLUTE AUTO 2.08 K/mm3 (0.84-5.20); LYMPHOCYTES PERCENT AUTO 21 % (21-46); MONOCYTES ABSOLUTE AUTO 0.84 K/mm3 (0.16-1.47); MONOCYTES PERCENT AUTO 8 % (4-13); Mean Corpuscular HGB 30.6 pg (26.0-34.0); Mean Corpuscular HGB Conc 32.2 g/dL (31.5-36.5); Mean Corpuscular Volume 95 fL (80-100); Mean Platelet Volume 9.3 fL (9.1-12.4); NEUTROPHILS ABSOLUTE AUTO 6.57 K/mm3 (1.96-9.15); NEUTROPHILS PERCENT AUTO 65 % (41-73); Platelet Count 386 K/mm3 (150-400); RDW Coefficient Variation 14.1 % (11.7-14.2); RDW Standard Deviation 48.9 fL (35.1-46.3); Red Blood Cell Count 2.84 M/mm3 (3.80-5.20)
[2022-09-20 05:38] LABS: Albumin, Blood 2.6 g/dL (3.4-5.0); Anion Gap 2 mmol/L (6-16); Blood Urea Nitrogen 28 mg/dL (8-24); Bun/Creatinine Ratio 37.8 (12.0-20.0); CO2, Blood 30 mmol/L (21-32); Calcium, Blood 8.8 mg/dL (8.5-10.1); Chloride, Blood 101 mmol/L (98-108); Creatinine, Blood 0.74 mg/dL (0.40-1.00); Glomerular Filtration Rate 78 (60-); Glucose, Blood 99 mg/dL (70-99); Phosphorus, Blood 3.7 mg/dL (2.5-4.9); Potassium, Blood 4.6 mmol/L (3.5-5.5); Sodium, Blood 133 mmol/L (136-145)
--- NOTE | 2022-09-20 19:32 | NUR ---
SUMMARY- PT A/O X4, UP IN CHAIR ALL DAY. USES CALL LIGHT. UP TO BSC WITH SBA. AMBULATED OVER 150 FEET INTO MARIE, RESTING ALLONG THE WAY. MIN SOB, MAINTAINING SATS WITH OXYGEN. TOLERATING FOOD AND FLUID. PAIN REPORTED THIS AM 6, CAME DOWN AFTER MS CONTIN, BUT ONLY TO A 5/10.MEDICATED WITH OXY 10MG X2. LOWEST PAIN REPORTED WAS 5/10, BUT PT STATES THAT TOLERABLE. VS AND SUGARS STABLE. REPORTED TO OSORIO RN.
[2022-09-21 05:25] LABS: BASOPHILS ABSOLUTE AUTO 0.04 K/mm3 (0.00-0.23); BASOPHILS PERCENT AUTO 0 % (0-2); EOSINOPHILS ABSOLUTE AUTO 0.16 K/mm3 (0.00-0.68); EOSINOPHILS PERCENT AUTO 2 % (0-6); Hematocrit 26.5 % (33.0-51.0); Hemoglobin 8.6 g/dL (11.5-16.0); IMMATURE GRAN ABSOLUTE AUTO 0.53 K/mm3 (0.00-0.10); IMMATURE GRAN PERCENT AUTO 5 % (0-1); LYMPHOCYTES ABSOLUTE AUTO 2.08 K/mm3 (0.84-5.20); LYMPHOCYTES PERCENT AUTO 19 % (21-46); MONOCYTES PERCENT AUTO 7 % (4-13); Mean Corpuscular HGB 30.6 pg (26.0-34.0); Mean Corpuscular HGB Conc 32.5 g/dL (31.5-36.5); Mean Corpuscular Volume 94 fL (80-100); Mean Platelet Volume 9.2 fL (9.1-12.4); NEUTROPHILS ABSOLUTE AUTO 7.32 K/mm3 (1.96-9.15); NEUTROPHILS PERCENT AUTO 67 % (41-73); Platelet Count 377 K/mm3 (150-400); Red Blood Cell Count 2.81 M/mm3 (3.80-5.20); White Blood Cell Count 10.93 K/mm3 (4.00-11.30)
[2022-09-21 06:01] LABS: Bun/Creatinine Ratio 31.5 (12.0-20.0); Calcium, Blood 8.9 mg/dL (8.5-10.1); Creatinine, Blood 0.83 mg/dL (0.40-1.00); Potassium, Blood 4.7 mmol/L (3.5-5.5)
--- NOTE | 2022-09-21 07:19 | NUR ---
HAND TWISTER SUMMARY: A&Ox4. PLEASANT AND COOPERATIVE WITH CARE. CALLS APPROPRIATELY AND IS ABLE TO COMMUNICATE NEEDS EFFECTIVELY. ORIENTED TO OWN ABILITIES AND EXHIBITS GOOD JUDGMENT. ADMINISTERED PRN OXYCODONE 10MG x1 T/O NIGHT B/T NECK PAIN. RT TITRATED O2 TO 3L/min, WHICH IS PT'S BASELINE AT HOME. TELE SINUS @ 71bpm. ANTICIPATE DC HOME TODAY OR TOMORROW. VSS. LABS DRAWN THIS AM; NO CRITICAL RESULTS RECEIVED. REPORT TO ONCOMING RN.
[2022-09-21] MEDS ORDERED: ACET325 PO ×2 (11:33)
[2022-09-21] MEDS ORDERED: CEFP200 PO ×2 (11:33)
[2022-09-21] MEDS ORDERED: FAMO20 PO ×2 (11:33)
[2022-09-21] MEDS ORDERED: GUAI600T33 PO ×2 (11:34)
[2022-09-21] MEDS ORDERED: NIFE30ER PO ×2 (11:35)
[2022-09-21] MEDS ORDERED: LACT PO ×2 (11:36)
[2022-09-21] MEDS ORDERED: RAYOS5 M1 PO ×2 (11:36)
--- NOTE | 2022-09-21 15:00 | NUR ---
5238 PT DISCHARGE REVIEWED DC INSTRUCTIONS, MEDICATIONS, AND FOLLOW UP WITH PT- PT VERB UNDERSTANDING. PT DISCHARGED VIA WC WITH PERSONAL BELONGINGS.
== END 2022-09-21 14:38 | disposition home health service (06) | DRG 871 ==
LOC: ER 18:09 → MEDS 21:25
PROVIDERS: Emergency Medicine; Family Medicine; Internal Medicine; ADMIT Internal Medicine
DX: A41.9 Sepsis, unspecified organism (principal); J18.9 Pneumonia, unspecified organism; J96.21 Acute and chronic respiratory failure with hypoxia; M31.7 Microscopic polyangiitis; B18.1 Chronic viral hepatitis B without delta-agent; M31.8 Other specified necrotizing vasculopathies; R04.2 Hemoptysis; I47.1 Supraventricular tachycardia; Z66 Do not resuscitate; I48.0 Paroxysmal atrial fibrillation; E89.0 Postprocedural hypothyroidism; M54.9 Dorsalgia, unspecified; G89.29 Other chronic pain; I10 Essential (primary) hypertension; D64.9 Anemia, unspecified; F32.A Depression, unspecified; Z20.822 Contact with and (suspected) exposure to COVID-19; K29.40 Chronic atrophic gastritis without bleeding; Z90.49 Acquired absence of other specified parts of digestive tract; Z99.81 Dependence on supplemental oxygen; Z98.890 Other specified postprocedural states; Z88.8 Allergy status to other drugs, medicaments and biological substances; Z88.2 Allergy status to sulfonamides; Z91.011 Allergy to milk products; Z88.0 Allergy status to penicillin; Z88.5 Allergy status to narcotic agent; Z91.040 Latex allergy status; Z79.899 Other long term (current) drug therapy; Z79.891 Long term (current) use of opiate analgesic
CPT/HCPCS: 0241U; 36415; 71045; 71046; 71260; 80048; 80053; 80069; 82947; 83735; 83880; 84145; 84484; 85025; 85027; 85651; 86140; 93005; 93010; 94760; 94762; 96365-59; 96366; 96367; 96375-59; 96376-59; 97110; 97110-CQ; 97116; 97116-CQ; 97162; 97166; 97530; 97535; 99285-25; A9270; J0360; J0456; J0692; J0696; J1650; J2270; J2405; J3010; J7050; J7512; Q9967

== ENCOUNTER → 2022-09-27 | Outpatient (CLI) | payer MEDICARE, OTHER ==
[~2022-09-27] MED LIST changes: +CEFP200 PO; +FAMO20 PO; +GUAI600T33 PO; +LACT PO; +NIFE30ER PO; +RAYOS5 M1 PO; +ZOLOFT25 MG PO
[2022-09-27 13:25] LABS: Albumin/Globulin Ratio 0.7 (0.8-1.8); Bilirubin, Total 0.4 mg/dL (0.1-1.0); Calcium, Blood 8.9 mg/dL (8.5-10.1); Globulin, Blood 4.1 g/dL (2.2-4.0); Potassium, Blood 4.9 mmol/L (3.5-5.5); Total Protein, Blood 7.1 g/dL (6.4-8.2)
== END | disposition home or self-care (01) ==
LOC: LAB SHORT 12:39
PROVIDERS: Physician Assistant
DX: D64.9 Anemia, unspecified (principal); R06.00 Dyspnea, unspecified
CPT/HCPCS: 80053

== ENCOUNTER → 2022-09-30 | Outpatient (CLI) | payer MEDICARE, OTHER | END | disposition home or self-care (01) | LOC: LAB SHORT 16:02 | DX: I50.9 Heart failure, unspecified (principal) | CPT/HCPCS: 83880 ==